=== PATIENT | female | born 1995 | race Caucasian/White ===

== ENCOUNTER 2017-02-16 03:54 | Emergency (ER) | payer SELFPAY ==
[2017-02-16 04:02] VITALS: BP 117/66
[2017-02-16] MEDS ORDERED: Ketorolac 60 MG/2 ML SDV IM ONE (04:24)
--- NOTE | 2017-02-16 12:30 | ER ---
REASON FOR VISIT: Dental pain. HISTORY OF PRESENT ILLNESS: A 21-year-old, white female, presents ambulatory to the emergency room with several week, approximately one-month history of dental pain involving all 4 wisdom teeth. The patient having pain going into the jaw and mandible on both sides. She was having fever and chills. She has tried OTC Aleve and/or ibuprofen without success. MEDICATIONS: Otherwise, none. ALLERGIES: No known. OBJECTIVE: GENERAL: She is alert. VITAL SIGNS: She is afebrile, pulse is 84, blood pressure 117/66, respirations 20, O2 saturation 100% On room air. HEENT: TMs are negative. Throat is clear. Mandible is nontender. She does have pain with opening and closing the mandible at the TMJ joint. NECK: Supple. No adenopathy. DENTAL: All 4 wisdom teeth showing signs of eruption. There is no significant swelling, redness, or signs of abscess or infection. ASSESSMENT: Dental pain, presumed secondary to wisdom teeth erupting. PLAN: 1. The patient is given Toradol 60 mg IM in the emergency room. 2. Naprosyn 500 mg b.i.d., #20, as described. She is to take these regularly twice a day. 3. Make appointment to see a dentist at the earliest convenience to have the wisdom teeth extraction. Call or return if any problems or concerns. CAIO Bauer MD /[id number]
== END 2017-02-16 04:50 | disposition home or self-care (01) ==
LOC: LL.ED 03:54
DX: K08.89 Other specified disorders of teeth and supporting structures (principal)
CPT/HCPCS: 96372; 99282; J1885; 99281

== ENCOUNTER 2017-12-05 18:50 | Emergency (ER) | payer BC, MEDICAID, OTHER ==
[2017-12-05 19:05] VITALS: BP 108/61
--- NOTE | 2017-12-05 19:54 | EDM.PDOC ---
ED HPI GENERAL MEDICAL PROBLEM - General Chief Complaint: ENT Problem Stated Complaint: tooth ache Time Seen by Provider: 12/05/17 19:00 Source of Information: Reports: Patient History Limitations: Reports: No Limitations - History of Present Illness INITIAL COMMENTS - FREE TEXT/NARRATIVE: Patient is a 22-year-old who was seen with chief complaint of left lower third molar pain appears impacted and tender there swelling on the outside outer aspect of the left cheek. Onset: Gradual Duration: Day(s):, Getting Worse, Other (Pain 8 out of 10) Location: Reports: Face Quality: Reports: Sharp Severity: Moderate Improves with: Reports: None Worsens with: Reports: None Context: Reports: Activity Associated Symptoms: Reports: No Other Symptoms left lower jaw dental Pain Score (Numeric/FACES): 8 - Related Data Allergies Allergy/AdvReac Type Severity Reaction Status Date / Time No Known Allergies Allergy Verified 12/05/17 18:59 Home Meds: Home Meds Albuterol [Proair HFA] 2 puff INH ASDIRECTED PRN 07/15/17 [History] Montelukast Sodium [Singulair] 10 mg PO DAILY 11/08/17 [History] Ibuprofen [Advil] 600 mg PO Q6H PRN 12/05/17 [History] Past Medical History Respiratory History: Reports: Asthma [employer] History: Reports: Other (See Below) Other OB/BYN History: abnormal periods. Musculoskeletal History: Reports: Fracture Psychiatric History: Reports: None - Past Surgical History Head Surgeries/Procedures: Reports: None Respiratory Surgical History: Reports: None Musculoskeletal Surgical History: Reports: None Dermatological Surgical History: Reports: None Social & Family History - Family History Family Medical History: Noncontributory - Tobacco Use Smoking Status *Q: Current Every Day Smoker Years of Tobacco use: 10 Packs/Tins Daily: 0.5 Second Hand Smoke Exposure: No - Caffeine Use Caffeine Use: Reports: Coffee, Energy Drinks, Soda, Tea - Recreational Drug Use Recreational Drug Use: Yes Drug Use in Last 12 Months: No Recreational Drug Type: Reports: Marijuana/Hashish Recreational Drug Use Frequency: Not Used In Over 1 Year ED ROS GENERAL - Review of Systems Review Of Systems: See Below Constitutional: Reports: No Symptoms HEENT: Reports: Dental Pain Respiratory: Reports: No Symptoms Cardiovascular: Reports: No Symptoms Endocrine: Reports: No Symptoms GI/Abdominal: Reports: No Symptoms : Reports: No Symptoms Musculoskeletal: Reports: No Symptoms Skin: Reports: No Symptoms Neurological: Reports: No Symptoms Psychiatric: Reports: No Symptoms Hematologic/Lymphatic: Reports: No Symptoms Immunologic: Reports: No Symptoms ED EXAM, GENERAL - Physical Exam Exam: See Below Exam Limited By: No Limitations General Appearance: Alert, WD/WN, No Apparent Distress Ears: Normal External Exam, Normal Canal, Hearing Grossly Normal, Normal TMs Nose: Normal Inspection, Normal Mucosa, No Blood Throat/Mouth: Other (Left lower jaw third molar pain) Head: Atraumatic, Normocephalic Neck: Normal Inspection, Supple, Non-Tender, Full Range of Motion Respiratory/Chest: No Respiratory Distress, Lungs Clear, Normal Breath Sounds, No Accessory Muscle Use, Chest Non-Tender Cardiovascular: Normal Peripheral Pulses, Regular Rate, Rhythm, No Edema, No Gallop, No JVD, No Murmur, No Rub GI/Abdominal: Normal Bowel Sounds, Soft, Non-Tender, No Organomegaly, No Distention, No Abnormal Bruit, No Mass (Female) Exam: Normal External Exam, Normal Speculum Exam, Normal Bimanual Exam Rectal (Female) Exam: Deferred Back Exam: Normal Inspection, Full Range of Motion, NT Extremities: Normal Inspection, Normal Range of Motion, Non-Tender, Normal Capillary Refill, No Pedal Edema Neurological: Alert, Oriented, CN II-XII Intact, Normal Cognition, Normal Gait, Normal Reflexes, No Motor/Sensory Deficits Psychiatric: Normal Affect, Normal Mood Skin Exam: Warm, Dry, Intact, Normal Color, No Rash Lymphatic: No Adenopathy Course - Vital Signs Last Recorded V/S: Last Vital Signs Temp 98.9 F 12/05/17 19:00 Pulse 87 12/05/17 19:00 Resp 16 12/05/17 19:00 BP 108/61 12/05/17 19:00 Pulse Ox 100 12/05/17 19:00 Departure - Departure Time of Disposition: 20:25 Disposition: Home, Self-Care 01 Condition: Fair Clinical Impression: Tooth pain - Discharge Information Instructions: Amoxicillin capsules or tablets, Tramadol tablets, Dental Abscess Referrals: PCP,Unknown [Primary Care Provider] - Forms: ED Department Discharge Care Plan Goals: ED HPI GENERAL MEDICAL PROBLEM - General Chief Complaint: ENT Problem Stated Complaint: tooth ache Source of Information: Reports: Patient History Limitations: Reports: No Limitations - History of Present Illness INITIAL COMMENTS - FREE TEXT/NARRATIVE: Patient is a 22-year-old who was seen with chief complaint of left lower third molar pain appears impacted and tender there swelling on the outside outer aspect of the left cheek. Onset: Gradual Duration: Day(s):, Getting Worse, Other (Pain 8 out of 10) Location: Reports: Face Quality: Reports: Sharp Severity: Moderate Improves with: Reports: None Worsens with: Reports: None Context: Reports: Activity Associated Symptoms: Reports: No Other Symptoms left lower jaw dental Pain Score (Numeric/FACES): 8 - Related Data Allergies Allergy/AdvReac Type Severity Reaction Status Date / Time No Known Allergies Allergy Verified 12/05/17 18:59 Home Meds: Home Meds Albuterol [Proair HFA] 2 puff INH ASDIRECTED PRN 07/15/17 [History] Montelukast Sodium [Singulair] 10 mg PO DAILY 11/08/17 [History] Ibuprofen [Advil] 600 mg PO Q6H PRN 12/05/17 [History] Past Medical History Respiratory History: Reports: Asthma [employer] History: Reports: Other (See Below) Other OB/BYN History: abnormal periods. Musculoskeletal History: Reports: Fracture Psychiatric History: Reports: None - Past Surgical History Head Surgeries/Procedures: Reports: None Respiratory Surgical History: Reports: None Musculoskeletal Surgical History: Reports: None Dermatological Surgical History: Reports: None Social & Family History - Family History Family Medical History: Noncontributory - Tobacco Use Smoking Status *Q: Current Every Day Smoker Years of Tobacco use: 10 Packs/Tins Daily: 0.5 Second Hand Smoke Exposure: No - Caffeine Use Caffeine Use: Reports: Coffee, Energy Drinks, Soda, Tea - Recreational Drug Use Recreational Drug Use: Yes Drug Use in Last 12 Months: No Recreational Drug Type: Reports: Marijuana/Hashish Recreational Drug Use Frequency: Not Used In Over 1 Year ED ROS GENERAL - Review of Systems Review Of Systems: See Below Constitutional: Reports: No Symptoms HEENT: Reports: Dental Pain Respiratory: Reports: No Symptoms Cardiovascular: Reports: No Symptoms Endocrine: Reports: No Symptoms GI/Abdominal: Reports: No Symptoms : Reports: No Symptoms Musculoskeletal: Reports: No Symptoms Skin: Reports: No Symptoms Neurological: Reports: No Symptoms Psychiatric: Reports: No Symptoms Hematologic/Lymphatic: Reports: No Symptoms Immunologic: Reports: No Symptoms ED EXAM, GENERAL - Physical Exam Exam: See Below Exam Limited By: No Limitations General Appearance: Alert, WD/WN, No Apparent Distress Ears: Normal External Exam, Normal Canal, Hearing Grossly Normal, Normal TMs Nose: Normal Inspection, Normal Mucosa, No Blood Throat/Mouth: Other (Left lower jaw third molar pain) Head: Atraumatic, Normocephalic Neck: Normal Inspection, Supple, Non-Tender, Full Range of Motion Respiratory/Chest: No Respiratory Distress, Lungs Clear, Normal Breath Sounds, No Accessory Muscle Use, Chest Non-Tender Cardiovascular: Normal Peripheral Pulses, Regular Rate, Rhythm, No Edema, No Gallop, No JVD, No Murmur, No Rub GI/Abdominal: Normal Bowel Sounds, Soft, Non-Tender, No Organomegaly, No Distention, No Abnormal Bruit, No Mass (Female) Exam: Normal External Exam, Normal Speculum Exam, Normal Bimanual Exam Rectal (Female) Exam: Deferred Back Exam: Normal Inspection, Full Range of Motion, NT Extremities: Normal Inspection, Normal Range of Motion, Non-Tender, Normal Capillary Refill, No Pedal Edema Neurological: Alert, Oriented, CN II-XII Intact, Normal Cognition, Normal Gait, Normal Reflexes, No Motor/Sensory Deficits Psychiatric: Normal Affect, Normal Mood Skin Exam: Warm, Dry, Intact, Normal Color, No Rash Lymphatic: No Adenopathy Course - Vital Signs Last Recorded V/S: Last Vital Signs Temp 98.9 F 12/05/17 19:00 Pulse 87 12/05/17 19:00 Resp 16 12/05/17 19:00 BP 108/61 12/05/17 19:00 Pulse Ox 100 12/05/17 19:00 Departure - Departure Time of Disposition: 19:53 Disposition: Home, Self-Care 01 Condition: Fair Clinical Impression: Tooth pain - Discharge Information Referrals: PCP,Unknown [Primary Care Provider] - Patient will see a dentist tomorrow start her on Augmentin 875 twice a day for 10 days also tramadol 50 one tablet or 4 hours when necessary
== END 2017-12-05 20:10 | disposition home or self-care (01) ==
LOC: LL.ED 18:50
DX: K08.89 Other specified disorders of teeth and supporting structures (principal); J45.909 Unspecified asthma, uncomplicated; F17.210 Nicotine dependence, cigarettes, uncomplicated; Z79.899 Other long term (current) drug therapy
CPT/HCPCS: 99282

== ENCOUNTER 2018-03-25 07:11 | Emergency (ER) | payer BC, MEDICAID ==
[2018-03-25 07:24] VITALS: BP 125/72
--- NOTE | 2018-03-25 07:37 | EDM.PDOC ---
ED HPI GENERAL MEDICAL PROBLEM - General Chief Complaint: Upper Extremity Injury/Pain Stated Complaint: left arm injury Time Seen by Provider: 03/25/18 07:25 Source of Information: Reports: Patient, Old Records, Other History Limitations: Reports: No Limitations - History of Present Illness INITIAL COMMENTS - FREE TEXT/NARRATIVE: The patient was brought to the emergency room via private automobile by her boyfriend for evaluation of lacerations of her left forearm. Initially the patient told the nurse that these occurred when a picture fell off the wall at about 4 AM this morning. She does admit to being intoxicated at the time. After further questioning by me the patient did finally admit that she intentionally cut her forearm with a knife with no known history of foreign body, other injuries, paresthesias, neurological deficits, etc. She is having increased stressors secondary to her work and also recent in the family, etc., although she is not willing to extensively discuss her stressors at this time. Last gesture reaction/self cutting about one month ago by her history. She denies any current suicidal ideation, intention of hurting others, etc.. No recent history of abdominal pain, heartburn, nausea, diarrhea, melena, gross hematochezia, or any food intolerance, including fatty foods, etc.. The patient also denies any recent fever, cough, wheezing, dyspnea, etc.. She does not know when she last received her tetanus shot. Patient is right-handed. Onset: Today, Unknown/Unsure Onset Date: 03/25/18 Onset Time: 04:00 Duration: Constant Location: Reports: Upper Extremity, Left. 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 Denies: Dysfunctional Uterine Bleeding, Endometriosis, Fibroids : 1 LMP (Approximate): 3 Weeks Other OB/BYN History: SAB during first trimester not requiring procedure. Previous history of abnormal irregular periods but not currently Musculoskeletal History: Reports: Fracture, Other (See Below). Denies: Arthritis, Osteoarthritis Other Musculoskeletal History: History of multiple injuries secondary to suicide attempt at age 14 as below including head concussion, multiple rib fracturesside unknown, right ankle fracture and to finger fractures of her right hand with no surgery required Neurological History: Reports: Concussion, Head Trauma, Other (See Below) Other Neuro History: Head concussion at age 14 as above/below Psychiatric History: Reports: Addiction, Anxiety, Depression, Psych Hospitalization(s), Suicide Attempt, Suicidal Ideation, Other (See Below) Other Psychiatric History: Anxiety depression disorder since age 14 with suicide attempt at that time with the patient jumping off a balcony with multiple injuries as above. She also has recurrent gesture reactions, including cutting her arms, etc. Note previous psychiatric hospitalization at age 14. Illicit drug, alcohol, tobacco use as below - Past Surgical History HEENT Surgical History: Reports: Oral Surgery, Other (See Below) Other HEENT Surgeries/Procedures: [place] teeth extraction 2 in December 2017 with multiple previous teeth extractions Respiratory Surgical History: Reports: None. Denies: Thoracentesis Musculoskeletal Surgical History: Reports: None Social & Family History - Tobacco Use Smoking Status *Q: Current Every Day Smoker Tobacco Use Within Last Twelve Months: Cigarettes Years of Tobacco use: 12 Packs/Tins Daily: 1 Packs/Tins Daily Comment: Started smoking at age 11 with average use of 12 packs per day Used Tobacco, but Quit: No Smoking Cessation Information Provided To Patient: Yes Second Hand Smoke Exposure: Yes Source of Second Hand Smoke Exposure: Entire family smokes Second Hand Smoke Education Provided: Yes - Caffeine Use Caffeine Use: Reports: Coffee, Energy Drinks, Soda, Tea - Alcohol Use Alcohol Use History: Yes Days Per Week of Alcohol Use: 0 (No previous DWIs, problems with alcohol abuse, etc.) Number of Drinks Per Day: 7 Number of Drinks Per Day Comment: Usually drinks about once per month with average use of 5 beers and 2 shots at each occasion Total Drinks Per Week: 0 - Recreational Drug Use Recreational Drug Use: Yes Drug Use in Last 12 Months: Yes Recreational Drug Type: Reports: Marijuana/Hashish (Started marijuana use at age 11 with monthly use including one month ago). Denies: Amphetamines (Speed) , Cocaine, Inhalants (Glues, Solvents, Aerosols), LSD (Acid), Methamphetamine, Morphine, Oxycodone Recreational Drug Use Frequency: Monthly Years of Recreational Drug Use: 12 Recreational Drug Route: Reports: Inhaled - Living Situation & Occupation Living situation: Reports: Single, with Family (2 siblings and mother) Occupation: Employed ([employer]) Review of Systems - Review of Systems Review Of Systems: ROS reveals no pertinent complaints other than HPI. ED EXAM, GENERAL - Physical Exam Exam: See Below Exam Limited By: No Limitations General Appearance: Alert, WD/WN, No Apparent Distress Eye Exam: Bilateral Eye: EOMI, Normal Inspection, PERRL Ears: Normal External Exam, Normal Canal, Hearing Grossly Normal, Normal TMs Nose: Normal Inspection, Normal Mucosa, No Blood Throat/Mouth: Normal Lips, Normal Gums, Normal Voice, No Airway Compromise. No : Normal Teeth (Multiple missing teeth and additional caries and broken teeth into the gumline particularly in lower dentition with no evidence of abscess), Dysphagia, Inflammation, Perioral Cyanosis Head: Atraumatic, Normocephalic. No: Facial Swelling, Facial Tenderness, Sinus Tenderness Neck: Normal Inspection, Supple, Non-Tender, Full Range of Motion. No: Carotid Bruit, Lymphadenopathy (L), Lymphadenopathy (R), Thyromegaly Respiratory/Chest: No Respiratory Distress, Lungs Clear, Normal Breath Sounds, No Accessory Muscle Use, Chest Non-Tender. No: Pleural Rub Cardiovascular: Normal Peripheral Pulses, Regular Rate, Rhythm, No Edema, No Gallop, No JVD, No Murmur, No Rub. No: Gallop/S3, Gallop/S4, Friction Rub Peripheral Pulses: 2+: Radial (L), Radial (R) GI/Abdominal: Normal Bowel Sounds, Soft, Non-Tender, No Organomegaly, No Distention, No Abnormal Bruit, No Mass. No: Guarding (Female) Exam: Deferred Rectal (Female) Exam: Deferred Back Exam: Normal Inspection, Full Range of Motion. No: CVA Tenderness (L), CVA Tenderness (R), Muscle Spasm Extremities: Normal Range of Motion, No Pedal Edema, Normal Capillary Refill, Arm Pain (Mild palpation pain at laceration sites), Other (All lacerations over the mid to proximal aspect of the flexor surface of her left forearm. Most proximal lesion is 8 cm in length somewhat deep in nature. Small 1.5 cm laceration just inferior to this area with most distal laceration 4.5 cm in length with both distal lacerations fairly superficial with extended superficial scratches not requiring repair. Multiple scars of the left forearm indicating previous gesture reactions.). No: Joint Swelling, Increased Warmth Psychiatric: Anxious (Mild to moderate), Depressed Mood (Moderate with adequate eye contact and no suicidal ideation, etc. as above), Other (Borderline intoxication with odor of alcohol) Skin Exam: Stud(s) (Multiple including right lower lip, left eyebrow and auricular regions by the bilaterally), Tattoo(s) (Multiple including over laceration sites), Wound/Incision (As above). No: Diaphoretic Lymphatic: No Adenopathy ED TRAUMA EXTREMITY PROCEDURES - Laceration/Wound Repair Right Upper Dorsal Arm Lac/Wound Length In cm: 8.0 Appearance: Superficial, Clean Distal NVT: Neuro & Vascular Intact, No Tendon Injury Anesthetic Type: Local Local Anesthesia - Lidocaine (Xylocaine): 1% Plain Local Anesthetic Volume: Other (8) Skin Prep: Providone-Iodine (Betadine) Saline Irrigation (cc's): 0 Exploration/Debridement/Repair: Wound Explored, In a Bloodless Field, Explored to Base, No Foreign Material Found, Other Closed With: Sutures Suture Size: 4-0 # of Sutures: 11 Suture Type: Nylon, Interrupted, Simple Drain Placement: No Sterile Dressing Applied: Nurse Tetanus Status Addressed: Yes Complications: No Left Middle Dorsal Arm Lac/Wound Length In cm: 1.5 Appearance: Superficial Distal NVT: Neuro & Vascular Intact, No Tendon Injury Anesthetic Type: Local Local Anesthesia - Lidocaine (Xylocaine): 1% Plain Local Anesthetic Volume: 2cc Skin Prep: Providone-Iodine (Betadine) Saline Irrigation (cc's): 0 Exploration/Debridement/Repair: Wound Explored, In a Bloodless Field, Explored to Base, No Foreign Material Found, Wound Margins Revised Closed With: Sutures Suture Size: 4-0 # of Sutures: 3 Suture Type: Nylon, Interrupted, Simple Drain Placement: No Sterile Dressing Applied: Nurse Tetanus Status Addressed: Yes Complications: No Left Lower Dorsal Arm Lac/Wound Length In cm: 4.5 Distal NVT: Neuro & Vascular Intact, No Tendon Injury Anesthetic Type: Local Local Anesthesia - Lidocaine (Xylocaine): 1% Plain Local Anesthetic Volume: 5cc Skin Prep: Providone-Iodine (Betadine) Saline Irrigation (cc's): 0 Exploration/Debridement/Repair: Wound Explored, In a Bloodless Field, Explored to Base, No Foreign Material Found Closed With: Sutures Suture Size: 4-0 # of Sutures: 4 Suture Type: Nylon, Interrupted, Simple Drain Placement: No Sterile Dressing Applied: Nurse Tetanus Status Addressed: Yes Complications: No Course - Vital Signs Last Recorded V/S: Last Vital Signs Temp 37.3 C 03/25/18 07:22 Pulse 100 03/25/18 07:22 Resp 18 03/25/18 07:22 BP 125/72 03/25/18 07:22 Pulse Ox 100 03/25/18 07:22 Vital Signs - 24 hr 03/25/18 07:22 Temperature [ 37.3 C Oral] Pulse, 100 Peripheral [ Left Pulse Oximetry] Respiratory 18 Rate Blood Pressure 125/72 [Right Upper Arm] O2 Sat by Pulse 100 Oximetry - Orders/Labs/Meds Orders: Active Orders 24 hr Category Date Time Status Vaccines to be Administered [RC] PER UNIT ROUTINE Care 03/25/18 07:38 Active Obtain Past Medical Record [OM.PC] Routine Oth 03/25/18 07:37 Active Labs: None Meds: Medications Discontinued Medications Generic Name Dose Route Start Last Admin Trade Name Freq PRN Reason Stop Dose Admin Diphtheria/Tetanus/Acell Pertussis 0.5 ml 03/25/18 07:38 03/25/18 07:49 Adacel IM 03/25/18 07:39 0.5 ml .ONCE ONE Administration Lidocaine HCl 5 ml 03/25/18 07:38 03/25/18 07:49 Xylocaine-Mpf 1% INJECT 03/25/18 07:39 5 ml ONETIME ONE Administration Lidocaine HCl 5 ml 03/25/18 07:39 03/25/18 07:49 Xylocaine-Mpf 1% INJECT 03/25/18 07:40 5 ml ONETIME ONE Administration Lidocaine HCl 5 ml 03/25/18 07:39 03/25/18 07:54 Xylocaine-Mpf 1% INJECT 03/25/18 07:40 5 ml ONETIME ONE Administration Lidocaine HCl 5 ml 03/25/18 07:39 03/25/18 08:13 Xylocaine-Mpf 1% INJECT 03/25/18 07:40 Not Given ONETIME ONE Lidocaine HCl 5 ml 03/25/18 07:39 03/25/18 08:13 Xylocaine-Mpf 1% INJECT 03/25/18 07:40 Not Given ONETIME ONE Neomycin/Polymyxin/Bacitracin 1 each 03/25/18 07:38 03/25/18 07:49 Triple Antibiotic Oint TOP 03/25/18 07:39 1 each ONETIME ONE Administration - Radiology Interpretation Free Text/Narrative:: None Departure - Departure Time of Disposition: 08:37 Disposition: Home, Self-Care 01 Condition: Good Clinical Impression: Laceration, Mixed anxiety depressive disorder, Tobacco abuse counseling, Illicit drug use, Caries Asthma Qualifiers: Asthma severity: mild Asthma persistence: intermittent Asthma complication type : uncomplicated Qualified Code(s): J45.20 - Mild intermittent asthma, uncomplicated - Discharge Information Instructions: Laceration Care, Adult, [id number], Stitches, Ricarod, or Adhesive Wound Closure, [id number] Referrals: PCP,None [Primary Care Provider] - Forms: ED Department Discharge Additional Instructions: 1. Follow-up with your regular provider tomorrow for reevaluation and work release. Discuss at that time recommended reinitiation of medical therapy and possible additional counseling for your anxiety and depression 2. Avoid alcohol use and discontinue all marijuana use as discussed 3. Stop all tobacco use JUAN as directed/per provided information and consider contacting Quit LIne, etc.. 4. Antibacterial soap wash/soak with subsequent antibacterial dressing such as Neosporin, etc. as directed 2 times per day until the wound or laceration site completely heals. Keep the area clean and dry with activity restrictions as discussed. 5. Tylenol 650 mg by mouth every 4 hours and/or OTC ibuprofen 2-3 tabs by mouth every 6 hours with food as directed./needed. 6. Follow with your dentist JUAN as discussed 7. 10 pound lifting restriction with your left arm until otherwise released by your regular provider - Problem List & Annotations (1) Laceration SNOMED Code(s): 506173183 Code(s): DOY9057 - Status: Acute Priority: High Onset Date: 03/25/18 Annotation/Comment:: Excellent results with laceration repair as above. DTaP given. Activity and wound care instructions were given. [employer] work excuse form was completed, however the patient was not released back to work this evening secondary to her emotional status and dangerous work environment. She will follow-up with her regular provider, Jaimie Mays PA-C, at [facility] in [place], tomorrow for reevaluation and probable work excuse at that time (2) Mixed anxiety depressive disorder SNOMED Code(s): 811115314 Code(s): F41.8 - OTHER SPECIFIED ANXIETY DISORDERS Status: Chronic Priority: High Annotation/Comment:: Significant exacerbation of her anxiety and depression disorder with patient stopping her previous medications on her own about 10 years ago. Note previous gesture reaction only one month ago. Emotional support was provided. The importance of medication compliance, possible counseling, etc. were extensively discussed. Close follow-up by her regular provider as per discharge instructions, including evaluation tomorrow as above (3) Illicit drug use SNOMED Code(s): 476623880 Code(s): F19.90 - OTHER PSYCHOACTIVE SUBSTANCE USE, UNSPECIFIED, UNCOMPLICATED Status: Chronic Priority: Medium Annotation/Comment:: Discontinue all marijuana and alcohol use JUAN since this aggravates her current anxiety and depression (4) Asthma SNOMED Code(s): 936896512 Code(s): J45.909 - UNSPECIFIED ASTHMA, UNCOMPLICATED Status: Chronic Priority: Medium Annotation/Comment:: Stable under current medical therapy by patient history with no recent fever or bronchitic type symptoms. Discontinue all tobacco use and exposure JUAN as below. Qualifiers: Asthma severity: mild Asthma persistence: intermittent Asthma complication type: uncomplicated Qualified Code(s): J45.20 - Mild intermittent asthma, uncomplicated (5) Caries SNOMED Code(s): 37681617 Code(s): K02.9 - DENTAL CARIES, UNSPECIFIED Status: Chronic Priority: Medium Annotation/Comment:: Patient was advised to follow-up with dentist JUAN (6) Tobacco abuse counseling SNOMED Code(s): 799535022, 142514390, 189494560 Code(s): Z71.6 - TOBACCO ABUSE COUNSELING Status: Chronic Priority: Medium Annotation/Comment:: Stop all tobacco use JUAN as directed/per provided information and consider contacting Quit LIne, etc.. - Problem List Review Problem List Initiated/Reviewed/Updated: Yes - My Orders Last 24 Hours: My Active Orders 03/25/18 07:37 Obtain Past Medical Record [OM.PC] Routine 03/25/18 07:38 Vaccines to be Administered [RC] PER UNIT ROUTINE - Assessment/Plan Last 24 Hours: My Active Orders 03/25/18 07:37 Obtain Past Medical Record [OM.PC] Routine 03/25/18 07:38 Vaccines to be Administered [RC] PER UNIT ROUTINE Assessment:: As above Plan: As above. Extensive precautions were given to the patient and her boyfriend, who are in agreement with the treatment plan. See Patient Instructions for further treatment and plan.
[2018-03-25] MEDS: Diphtheria,Pertussis(Acell),Tetanus Vaccine 0.5 ML SDV IM ONE (07:49)
[2018-03-25] MEDS: Bacitracin/Neomycin/Polymyxin B Oint 0.9 GM U/D Packet TOP ONE (07:49)
== END 2018-03-25 08:37 | disposition home or self-care (01) ==
LOC: LL.ED 07:11
DX: S51.812A Laceration without foreign body of left forearm, initial encounter (principal); J45.20 Mild intermittent asthma, uncomplicated; F41.8 Other specified anxiety disorders; F19.90 Other psychoactive substance use, unspecified, uncomplicated; K02.9 Dental caries, unspecified; Z23 Encounter for immunization; Z71.6 Tobacco abuse counseling; F17.210 Nicotine dependence, cigarettes, uncomplicated; Z79.899 Other long term (current) drug therapy; W20.8XXA Other cause of strike by thrown, projected or falling object, initial encounter
CPT/HCPCS: 12005; 90471; 90715; 99283

== ENCOUNTER 2019-01-17 07:44 | Emergency (ER) | payer BC, OTHER ==
[2019-01-17 07:51] VITALS: BP 117/65
--- NOTE | 2019-01-17 08:44 | EDM.PDOC ---
ED HPI GENERAL MEDICAL PROBLEM - General Chief Complaint: General Stated Complaint: L hand laceration Time Seen by Provider: 01/17/19 08:00 Source of Information: Reports: Patient History Limitations: Reports: No Limitations - History of Present Illness INITIAL COMMENTS - FREE TEXT/NARRATIVE: Patient is a 23-year-old who works at [employer] states that towards the end of her shift she was sweeping her work area where there was a piece of metal that cut her- a superficial laceration full-thickness in the dorsal aspect of the left hand this was approximately an inch long Onset: Today Duration: Minutes:, Constant Location: Reports: Upper Extremity, Left Quality: Reports: Ache Severity: Mild Improves with: Reports: None Worsens with: Reports: None Context: Reports: Trauma Left Anterior Hand Pain Score (Numeric/FACES): 2 - Related Data Allergies Allergy/AdvReac Type Severity Reaction Status Date / Time No Known Allergies Allergy Verified 01/17/19 07:52 Home Meds: Home Meds Albuterol [Proair HFA] 2 puff INH ASDIRECTED PRN 07/15/17 [History] Past Medical History HEENT History: Reports: Impaired Vision, Other (See Below). 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 Denies: Dysfunctional Uterine Bleeding, Endometriosis, Fibroids Other SCAFFOLD WORKER History: SAB during first trimester not requiring procedure. Previous history of abnormal irregular periods but not currently Musculoskeletal History: Reports: Fracture, Other (See Below). Denies: Arthritis, Osteoarthritis Other Musculoskeletal History: History of multiple injuries secondary to suicide attempt at age 14 as below including head concussion, multiple rib fracturesside unknown, right ankle fracture and to finger fractures of her right hand with no surgery required Neurological History: Reports: Concussion, Head Trauma, Other (See Below) Other Neuro History: Head concussion at age 14 as above/below Psychiatric History: Reports: Addiction, Anxiety, Depression, Psych Hospitalization(s), Suicide Attempt, Suicidal Ideation, Other (See Below) Other Psychiatric History: Anxiety depression disorder since age 14 with suicide attempt at that time with the patient jumping off a balcony with multiple injuries as above. She also has recurrent gesture reactions, including cutting her arms, etc. Note previous psychiatric hospitalization at age 14. Illicit drug, alcohol, tobacco use as below - Past Surgical History HEENT Surgical History: Reports: Oral Surgery, Other (See Below) Other HEENT Surgeries/Procedures: [place] teeth extraction 2 in December 2017 with multiple previous teeth extractions Respiratory Surgical History: Reports: None. Denies: Thoracentesis Musculoskeletal Surgical History: Reports: None Social & Family History - Family History Family Medical History: Noncontributory - Tobacco Use Smoking Status *Q: Current Every Day Smoker Years of Tobacco use: 13 Packs/Tins Daily: 0.5 - Caffeine Use Caffeine Use: Reports: Energy Drinks - Recreational Drug Use Recreational Drug Use: Yes Drug Use in Last 12 Months: Yes Recreational Drug Type: Reports: Marijuana/Hashish - Living Situation & Occupation Living situation: Reports: Single, with Family (2 siblings and mother) Occupation: Employed ([employer]) ED ROS GENERAL - Review of Systems Review Of Systems: ROS reveals no pertinent complaints other than HPI. ED EXAM, GENERAL - Physical Exam Exam: See Below Exam Limited By: No Limitations General Appearance: Alert, WD/WN, No Apparent Distress Ears: Normal External Exam, Normal Canal, Hearing Grossly Normal, Normal TMs Nose: Normal Inspection, Normal Mucosa, No Blood Throat/Mouth: Normal Inspection, Normal Lips, Normal Teeth, Normal Gums, Normal Oropharynx, Normal Voice, No Airway Compromise Head: Atraumatic, Normocephalic Neck: Normal Inspection, Supple, Non-Tender, Full Range of Motion Respiratory/Chest: No Respiratory Distress, Lungs Clear, Normal Breath Sounds, No Accessory Muscle Use, Chest Non-Tender Cardiovascular: Normal Peripheral Pulses, Regular Rate, Rhythm, No Edema, No Gallop, No JVD, No Murmur, No Rub GI/Abdominal: Normal Bowel Sounds, Soft, Non-Tender, No Organomegaly, No Distention, No Abnormal Bruit, No Mass Back Exam: Normal Inspection, Full Range of Motion, NT Extremities: Normal Range of Motion, Other (Laceration 1 inch dorsal aspect of the hand) Neurological: Alert, Oriented, CN II-XII Intact, Normal Cognition, Normal Gait, Normal Reflexes, No Motor/Sensory Deficits Psychiatric: Normal Affect, Normal Mood Skin Exam: Warm, Dry, Intact, Normal Color, No Rash Lymphatic: No Adenopathy ED GENERAL MEDICAL PROCEDURES - Laceration/Wound Repair Left Hand Lac/wound length in cm: 1.5 Appearance: Superficial Skin Prep: Providone-Iodine (Betadine) Exploration/Debridement/Repair: No Foreign Material Found Closed with: Dermabond Course - Vital Signs Last Recorded V/S: Last Vital Signs Temp 99 F 01/17/19 07:45 Pulse 68 01/17/19 07:45 Resp 16 01/17/19 07:45 BP 117/65 01/17/19 07:45 Pulse Ox 100 01/17/19 07:45 Departure - Departure Time of Disposition: 08:47 Disposition: Home, Self-Care 01 Clinical Impression: Laceration of hand Qualifiers: Encounter type: initial encounter Foreign body presence: without foreign body Laterality: left Qualified Code(s): S61.412A - Laceration without foreign body of left hand, initial encounter - Discharge Information *PRESCRIPTION DRUG MONITORING PROGRAM REVIEWED*: No *COPY OF PRESCRIPTION DRUG MONITORING REPORT IN PATIENT AC: No Instructions: Tissue Adhesive Wound Care Referrals: Jaimie Hdz PA-C [Primary Care Provider] - Forms: ED Department Discharge Additional Instructions: wound cleaned and dermabond applied
== END 2019-01-17 09:05 | disposition home or self-care (01) ==
LOC: LL.ED 07:44
DX: S61.412A Laceration without foreign body of left hand, initial encounter (principal); J45.909 Unspecified asthma, uncomplicated; F17.210 Nicotine dependence, cigarettes, uncomplicated; F41.9 Anxiety disorder, unspecified; F32.9 Major depressive disorder, single episode, unspecified; W26.8XXA Contact with other sharp object(s), not elsewhere classified, initial encounter
CPT/HCPCS: 12001; 99282

== ENCOUNTER 2019-06-05 17:39 | Emergency (ER) | payer BC, OTHER ==
[2019-06-05] MEDS ORDERED: Sodium Chloride 0.9% 10 ML Syringe FLUSH PRN (17:53)
--- NOTE | 2019-06-05 17:53 | EDM.PDOC ---
ED HPI GENERAL MEDICAL PROBLEM - General Chief Complaint: NETWORK RELATIONS CONSULTANT Problem Stated Complaint: abdominal/pelvic pain Time Seen by Provider: 06/05/19 17:50 Source of Information: Reports: Patient, Family (Sister), Old Records ([facility] EMR. No paper hospital chart available.), Other ( [place] EMR) History Limitations: Reports: No Limitations - History of Present Illness INITIAL COMMENTS - FREE TEXT/NARRATIVE: The patient was brought to the emergency room via private automobile by her sister for evaluation of 06/05 suprapubic cramping with 8 soaked pads per day including moderate blood clots since about midnight this past evening. No direct known history of tissue being passed at this time with patient prescribed misoprostal by her NETWORK RELATIONS CONSULTANT at [facility] in [place] on 05/27 secondary to a blighted ovum. Patient did have some moderate bleeding for about 6 days thereafter with possible tissue passage during that time period, however no follow-up ultrasound to this point. She did miss work yesterday. Patient did have an OB ultrasound on 05/21 confirming the above diagnosis with apparent fall of her hemoglobin to 11.5 on 05/27 in comparison to 05/21 per [place] records. Patient has felt somewhat dizzy since yesterday with possible fever and chills, however temperature not measured. Patient did take some ibuprofen yesterday. She may also be having some mild dysuria and UTI symptoms but no colic. No recent history of other abdominal pain, heartburn, nausea, diarrhea, melena, gross hematochezia, or any food intolerance, including fatty foods, etc. with normal bowel movement yesterday. The patient denies any chest pain/pressure, heart flutter, orthostasis, orthopnea, diaphoresis, paresthesias, recent decreased exercise tolerance, or any other anginal-type symptoms. The patient also denies any recent cough, wheezing, dyspnea, etc.. Onset: Today, Gradual Onset Date: 06/05/19 Onset Time: 00:00 Duration: Constant, Getting Worse Location: Reports: Abdomen. Denies: Head, Face, Neck, Chest, Back, Pelvis, Upper Extremity, Left, Upper Extremity, Right, Radiates to Quality: Reports: Pressure (Cramping), Same as Previous Episode Severity: Moderate Improves with: Reports: None Worsens with: Reports: None Context: Reports: Other (As above). Denies: Sick Contact, Trauma Associated Symptoms: Reports: Fever/Chills. Denies: Confusion, Chest Pain, Cough, Diaphoresis, Headaches, Loss of Appetite, Malaise, Nausea/Vomiting, Shortness of Breath, Syncope, Weakness Treatments CRIMINAL JUSTICE DEPARTMENT CHAIR: Reports: NSAIDS (As above) Upper Pelvic Pain Score (Numeric/FACES): 7 - Related Data Allergies Allergy/AdvReac Type Severity Reaction Status Date / Time No Known Allergies Allergy Verified 06/05/19 17:41 Home Meds: Home Meds Albuterol [Proair HFA] 2 puff INH ASDIRECTED PRN 07/15/17 [History] Ibuprofen 2 - 3 tab PO Q6HR PRN 06/05/19 [History] Zvy465/Iron/FA/O3/Dha/Epa/Fish [ Multi-Dha Softgel] 1 cap PO DAILY 06/05 [History] Past Medical History HEENT History: Reports: Impaired Vision, Other (See Below). Denies: Allergic Rhinitis, Hard of Hearing, Retinal Detachment Other HEENT History: History of Multiple caries. Patient wears glasses. Cardiovascular History: Reports: None. Denies: Afib, Aneurysm, Arrhythmia, Blood Clots/VTE/DVT, Heart Murmur, High Cholesterol, Hypertension, Syncope Respiratory History: Reports: Asthma, Bronchitis, Recurrent. Denies: Intubation , Previous, PE, Pneumothorax, Sleep Apnea Gastrointestinal History: Denies: Celiac Disease, Cholelithiasis, Chronic Constipation, Chronic Diarrhea, GERD, GI Bleed, Hepatitis, Hiatal Hernia, Inflammatory Bowel Disease, Irritable Bowel Syndrome, Jaundice, PUD Genitourinary History: Reports: None. Denies: Acute Renal Failure, Chronic Renal Insuffiency, Renal Calculus, STD, Urinary Incontinence, UTI, Recurrent NETWORK RELATIONS CONSULTANT History: Reports: , Spontaneous , Other (See Below). Denies: Dysfunctional Uterine Bleeding, Endometriosis, Fibroids : 2 Para: 0 LMP (Approximate): Other (See Below) Other NETWORK RELATIONS CONSULTANT History: LMP certain on 03/04/19 with current blighted ovum diagnosed by OB ultrasound on 04/2519. SAB during first trimester not requiring procedure. Previous history of abnormal irregular periods but not currently. Musculoskeletal History: Reports: Fracture, Other (See Below). Denies: Arthritis, Osteoarthritis Other Musculoskeletal History: History of multiple injuries secondary to suicide attempt at age 14 as below including head concussion, multiple rib fracturesside unknown, right ankle fracture and 2 finger fractures of her right hand with no surgery required. Neurological History: Reports: Concussion, Head Trauma, Other (See Below). Denies: Headaches, Chronic, Neuropathy, Peripheral, Seizure Other Neuro History: Head concussion at age 14 as above/below Psychiatric History: Reports: Addiction, Anxiety, Depression, Psych Hospitalization(s), Suicide Attempt, Suicidal Ideation, Other (See Below) Other Psychiatric History: Anxiety depression disorder since age 14 with suicide attempt at that time with the patient jumping off a balcony with multiple injuries as above. She also has recurrent gesture reactions, including cutting her arms, etc. Note previous psychiatric hospitalization at age 14. Illicit drug, alcohol, tobacco use as below Endocrine/Metabolic History: Denies: Diabetes, Gestational, Diabetes, Type I, Diabetes, Type II, Diabetes Mellitus, Type 3c, Hypothyroidism, IDDM Hematologic History: Reports: None. Denies: Anemia, Blood Transfusion(s), Iron Deficiency Immunologic History: Denies: AIDS, HIV, SLE Oncologic (Cancer) History: Denies: Basal Cell Carcinoma, Breast, Cervix, Hodgkin's Lymphoma, Leukemia, Lymphoma, Malignant Melanoma, Non-Hodgkin's Lymphoma, Ovarian, Squamous Cell Carcinoma Dermatologic History: Reports: None. Denies: Eczema, Psoriasis - Infectious Disease History Infectious Disease History: Reports: None. Denies: C-Difficile, Chicken Pox, Measles, Meningitis, Mononucleosis, MRSA, Mumps, Pertussis (Whooping Cough), Rheumatic Fever, RSV, Rubella, Scarlet Fever, Shingles, TB, VRE - Past Surgical History HEENT Surgical History: Reports: Oral Surgery, Other (See Below) Other HEENT Surgeries/Procedures: [place] teeth extraction 2 in December 2017 with multiple previous teeth extractions Respiratory Surgical History: Reports: None. Denies: Thoracentesis Musculoskeletal Surgical History: Reports: None - Past Imaging History Past Imaging History: Reports: Ultrasound (OB ultrasound on 05/21/19.) Social & Family History - Family History Family Medical History: Noncontributory - Tobacco Use Smoking Status *Q: Former Smoker Tobacco Use Within Last Twelve Months: Cigarettes Years of Tobacco use: 23 Packs/Tins Daily: 1 Packs/Tins Daily Comment: Started smoking at age 11 with average use of 12 packs per day with no tobacco use since March 2019 Used Tobacco, but Quit: Yes Month/Year Tobacco Last Used: As above Smoking Cessation Information Provided To Patient: No Second Hand Smoke Exposure: No Source of Second Hand Smoke Exposure: No tobacco exposure currently however previous exposure to multiple family members. Second Hand Smoke Education Provided: No - Caffeine Use Caffeine Use: Reports: Coffee (3 cups per day), Energy Drinks (1 per week). Denies: Soda, Tea - Alcohol Use Alcohol Use History: Yes Days Per Week of Alcohol Use: 0 Number of Drinks Per Day Comment: No alcohol use since March 2019. Previous use of 5 beers and 2 shots about once per month. No previous DWIs, problems with alcohol abuse, etc. Alcohol Use in Last Twelve Months: Yes Alcohol Use Frequency: Binges - Recreational Drug Use Recreational Drug Use: Yes Drug Use in Last 12 Months: Yes Recreational Drug Type: Reports: Marijuana/Hashish (Started marijuana use at age 11 with previous monthly use with last use in February 2018.). Denies: Amphetamines (Speed), Cocaine, Heroin, Inhalants (Glues, Solvents, Aerosols), LSD (Acid), Methamphetamine, Morphine, Oxycodone Recreational Drug Use Frequency: Monthly Recreational Drug Route: Reports: Inhaled - Living Situation & Occupation Living situation: Reports: Single, Alone (However current significant other relationship) Occupation: Employed ([employer]) ED ROS GENERAL - Review of Systems Review Of Systems: ROS reveals no pertinent complaints other than HPI. ED EXAM, RENAL/ - Physical Exam Exam: See Below General Appearance: Alert, WD/WN, No Apparent Distress Head: Atraumatic, Normocephalic Neck: Normal Inspection, Supple, Non-Tender, Full Range of Motion. No: Carotid Bruit, Lymphadenopathy (L), Lymphadenopathy (R), Thyromegaly Respiratory/Chest: No Respiratory Distress, Lungs Clear, Normal Breath Sounds, No Accessory Muscle Use, Chest Non-Tender. No: Pleural Rub, Retractions Cardiovascular: Normal Peripheral Pulses, Regular Rate, Rhythm, No Edema, No Gallop, No JVD, No Murmur, No Rub. No: Gallop/S3, Gallop/S4 GI/Abdominal: Normal Bowel Sounds, Soft, Non-Tender, No Organomegaly, No Distention, No Abnormal Bruit, No Mass, Pelvis Stable. No: Guarding (Female) Exam: Enlarged Uterus (Appropriate for blighted ovum), Vaginal Bleeding (Minimal with no clots), Other (No tissue). No: Adnexal Mass, Adnexal Tenderness, Cervical Dilatation, Cervical Discharge, Cervical Fluid, Cervical Lesions, Cervix Motion Tenderness, Products of Conception, Uterine Tenderness, Vaginal Discharge, Vaginal Lesions, Vaginal Tears Rectal (Female) Exam: Deferred Back Exam: Normal Inspection, Full Range of Motion. No: CVA Tenderness (L), CVA Tenderness (R), Muscle Spasm Extremities: Normal Inspection, Normal Range of Motion, Non-Tender, No Pedal Edema, Normal Capillary Refill. No: Mildred's Sign Neurological: Alert, Oriented, CN II-XII Intact, Normal Cognition, Normal Gait, Normal Reflexes (Negative Babinski's), No Motor/Sensory Deficits Psychiatric: Normal Affect, Normal Mood Skin Exam: Warm, Dry, Intact, Normal Color, No Rash, Stud(s) (Multiple), Tattoo( s) (Multiple). No: Diaphoretic, Ecchymosis, Pallor, Petechiae, Wound/Incision Lymphatic: No Adenopathy Course - Vital Signs Last Recorded V/S: Last Vital Signs Temp 36.8 C 06/05/19 17:39 Pulse 69 06/05/19 19:09 Resp 14 06/05/19 19:09 BP 98/63 06/05/19 19:09 Pulse Ox 100 06/05/19 19:09 Vital Signs - 24 hr 06/05/19 06/05/19 06/05/19 17:39 18:30 18:36 Temperature [ 36.8 C Temporal] Pulse, 74 70 76 Peripheral [ Right Pulse Oximetry] Respiratory 14 14 Rate Blood Pressure 104/55 L 112/58 L 119/61 [Left Upper Arm ] O2 Sat by Pulse 100 100 Oximetry 06/05/19 18:42 Temperature [ Temporal] Pulse, 64 Peripheral [ Right Pulse Oximetry] Respiratory 14 Rate Blood Pressure 112/52 L [Left Upper Arm ] O2 Sat by Pulse 100 Oximetry Negative orthostatic blood pressures as above. - Orders/Labs/Meds Orders: Active Orders 24 hr Category Date Time Status Cardiac Monitoring [RC] . DIRECTED Care 06/05/19 17:58 Active Peripheral IV Care [RC] . DIRECTED Care 06/05/19 17:53 Active CULTURE URINE [RM] Stat Lab 06/05/19 17:53 Received Obtain Past Medical Record [OM.PC] Urgent Oth 06/05/19 17:53 Active Peripheral IV Insertion Adult [OM.PC] Stat Oth 06/05/19 17:53 Ordered Resuscitation Status Stat Resus Stat 06/05/19 17:53 Ordered Labs: Laboratory Tests 06/05/19 06/05/19 06/05/19 Range/Units 17:53 18:13 18:13 WBC 6.4 (4.0-10.2) K/uL RBC 4.70 (3.77-5.09) M/uL Hgb 14.3 (11.7-15.5) g/dL Hct 41.3 (34.0-46.0) % MCV 87.9 (84.0-98.0) fL MCH 30.4 (28.2-33.3) pg MCHC 34.6 (31.7-36.0) g/dL RDW 12.2 (11.2-14.1) % Plt Count 201 (150-350) K/uL Neut % (Auto) 56.5 (45.0-80.0) % Lymph % (Auto) 28.7 (10.0-50.0) % [place] % (Auto) 8.7 (2.0-14.0) % Eos % (Auto) 5.5 H (0.0-5.0) % Baso % (Auto) 0.6 (0.0-2.0) % Neut # (Auto) 3.59 (1.40-7.00) K/uL Lymph # (Auto) 1.82 (0.50-3.50) K/uL [place] # (Auto) 0.55 (0.00-1.00) K/uL Eos # (Auto) 0.35 (0.00-0.50) K/uL Baso # (Auto) 0.04 (0.00-0.20) K/uL PT (9.5-12.0) SEC INR APTT (21.0-31.3) SEC Sodium (136-145) mmol/L Potassium (3.5-5.1) mmol/L Chloride (98-107) mmol/L Carbon Dioxide (21.0-32.0) mmol/L BUN (7-18) mg/dL Creatinine (0.51-1.17) mg/dL Est Cr Clr Drug Dosing Estimated GFR (MDRD) mL/min Glucose (74-106) mg/dL Lactic Acid (0.4-2.0) mmol/L Calcium (8.5-10.1) mg/dL Magnesium (1.8-2.4) mg/dL Total Bilirubin (0.2-1.0) mg/dL AST (15-37) U/L ALT (12-78) U/L Alkaline Phosphatase (46-116) IU/L Total Protein (6.4-8.2) g/dL Albumin (3.4-5.0) g/dL Amylase 64 (25-115) U/L Lipase (73-393) U/L HCG, Quant mIU/mL Specimen Type Urinvoid Urine Color Dark yellow Urine Appearance Slightly cloudy Urine pH 6.0 (5.0-9.0) Ur Specific [place] 1.025 (1.005-1.030) Urine Protein 30 H (NEGATIVE) mg/dL Urine Glucose (UA) Negative (NEGATIVE) mg/dL Urine Ketones Trace H (NEGATIVE) mg/dL Urine Occult Blood Large H (NEGATIVE) Urine Nitrite Negative (NEGATIVE) Urine Bilirubin Negative (NEGATIVE) Urine Urobilinogen 0.2 (0.2-1.0) E.U./dL Ur Leukocyte Esterase Negative (NEGATIVE) Urine RBC 30-40 H /HPF Urine WBC 5-10 H /HPF Ur Epithelial Cells Moderate H /LPF Urine Bacteria Few (NONE TO FEW) /HPF 06/05/19 06/05/19 06/05/19 Range/Units 18:13 18:13 18:13 WBC (4.0-10.2) K/uL RBC (3.77-5.09) M/uL Hgb (11.7-15.5) g/dL Hct (34.0-46.0) % MCV (84.0-98.0) fL MCH (28.2-33.3) pg MCHC (31.7-36.0) g/dL RDW (11.2-14.1) % Plt Count (150-350) K/uL Neut % (Auto) (45.0-80.0) % Lymph % (Auto) (10.0-50.0) % [place] % (Auto) (2.0-14.0) % Eos % (Auto) (0.0-5.0) % Baso % (Auto) (0.0-2.0) % Neut # (Auto) (1.40-7.00) K/uL Lymph # (Auto) (0.50-3.50) K/uL [place] # (Auto) (0.00-1.00) K/uL Eos # (Auto) (0.00-0.50) K/uL Baso # (Auto) (0.00-0.20) K/uL PT 10.0 (9.5-12.0) SEC INR 0.9 APTT 29.5 (21.0-31.3) SEC Sodium 142 (136-145) mmol/L Potassium 3.9 (3.5-5.1) mmol/L Chloride 104 (98-107) mmol/L Carbon Dioxide 25.8 (21.0-32.0) mmol/L BUN 14 (7-18) mg/dL Creatinine 0.74 (0.51-1.17) mg/dL Est Cr Clr Drug Dosing TNP Estimated GFR (MDRD) > 60 mL/min Glucose 86 (74-106) mg/dL Lactic Acid 0.6 (0.4-2.0) mmol/L Calcium 9.0 (8.5-10.1) mg/dL Magnesium 2.1 (1.8-2.4) mg/dL Total Bilirubin 0.2 (0.2-1.0) mg/dL AST 27 (15-37) U/L ALT 27 (12-78) U/L Alkaline Phosphatase 59 (46-116) IU/L Total Protein 7.4 (6.4-8.2) g/dL Albumin 4.0 (3.4-5.0) g/dL Amylase (25-115) U/L Lipase 146 (73-393) U/L HCG, Quant mIU/mL Specimen Type Urine Color Urine Appearance Urine pH (5.0-9.0) Ur Specific [place] (1.005-1.030) Urine Protein (NEGATIVE) mg/dL Urine Glucose (UA) (NEGATIVE) mg/dL Urine Ketones (NEGATIVE) mg/dL Urine Occult Blood (NEGATIVE) Urine Nitrite (NEGATIVE) Urine Bilirubin (NEGATIVE) Urine Urobilinogen (0.2-1.0) E.U./dL Ur Leukocyte Esterase (NEGATIVE) Urine RBC /HPF Urine WBC /HPF Ur Epithelial Cells /LPF Urine Bacteria (NONE TO FEW) /HPF 06/05/19 Range/Units 18:13 WBC (4.0-10.2) K/uL RBC (3.77-5.09) M/uL Hgb (11.7-15.5) g/dL Hct (34.0-46.0) % MCV (84.0-98.0) fL MCH (28.2-33.3) pg MCHC (31.7-36.0) g/dL RDW (11.2-14.1) % Plt Count (150-350) K/uL Neut % (Auto) (45.0-80.0) % Lymph % (Auto) (10.0-50.0) % [place] % (Auto) (2.0-14.0) % Eos % (Auto) (0.0-5.0) % Baso % (Auto) (0.0-2.0) % Neut # (Auto) (1.40-7.00) K/uL Lymph # (Auto) (0.50-3.50) K/uL [place] # (Auto) (0.00-1.00) K/uL Eos # (Auto) (0.00-0.50) K/uL Baso # (Auto) (0.00-0.20) K/uL PT (9.5-12.0) SEC INR APTT (21.0-31.3) SEC Sodium (136-145) mmol/L Potassium (3.5-5.1) mmol/L Chloride (98-107) mmol/L Carbon Dioxide (21.0-32.0) mmol/L BUN (7-18) mg/dL Creatinine (0.51-1.17) mg/dL Est Cr Clr Drug Dosing Estimated GFR (MDRD) mL/min Glucose (74-106) mg/dL Lactic Acid (0.4-2.0) mmol/L Calcium (8.5-10.1) mg/dL Magnesium (1.8-2.4) mg/dL Total Bilirubin (0.2-1.0) mg/dL AST (15-37) U/L ALT (12-78) U/L Alkaline Phosphatase (46-116) IU/L Total Protein (6.4-8.2) g/dL Albumin (3.4-5.0) g/dL Amylase (25-115) U/L Lipase (73-393) U/L HCG, Quant 44 mIU/mL Specimen Type Urine Color Urine Appearance Urine pH (5.0-9.0) Ur Specific [place] (1.005-1.030) Urine Protein (NEGATIVE) mg/dL Urine Glucose (UA) (NEGATIVE) mg/dL Urine Ketones (NEGATIVE) mg/dL Urine Occult Blood (NEGATIVE) Urine Nitrite (NEGATIVE) Urine Bilirubin (NEGATIVE) Urine Urobilinogen (0.2-1.0) E.U./dL Ur Leukocyte Esterase (NEGATIVE) Urine RBC /HPF Urine WBC /HPF Ur Epithelial Cells /LPF Urine Bacteria (NONE TO FEW) /HPF Urine specimen set up for culture and sensitivity Meds: Medications Discontinued Medications Generic Name Dose Route Start Last Admin Trade Name Freq PRN Reason Stop Dose Admin Lactated Ringer's 1,000 mls @ 999 mls/hr 06/05/19 17:58 06/05/19 18:14 Ringers, Lactated IV 06/05/19 18:58 999 mls/hr .BOLUS ONE Administration Sodium Chloride 10 ml 06/05/19 17:53 06/05/19 18:14 Saline Flush FLUSH 10 ml ASDIRECTED PRN Administration Keep Vein Open - Radiology Interpretation Free Text/Narrative:: threat monitoring analyst shows normal sinus rhythm with heart rate in the 60s to 80s with no ectopy or arrhythmia. Departure - Departure Time of Disposition: 19:35 Disposition: Home, Self-Care 01 Condition: Good Clinical Impression: SAB (spontaneous ), Mixed anxiety depressive disorder Asthma Qualifiers: Asthma severity: mild Asthma persistence: intermittent Asthma complication type : uncomplicated Qualified Code(s): J45.20 - Mild intermittent asthma, uncomplicated - Discharge Information *PRESCRIPTION DRUG MONITORING PROGRAM REVIEWED*: Not Applicable *COPY OF PRESCRIPTION DRUG MONITORING REPORT IN PATIENT AC: Not Applicable Instructions: Miscarriage, [id number] Referrals: Jaimie Hdz PA-C [Primary Care Provider] - Forms: ED Department Discharge Additional Instructions: 1. Followup with your regular provider in 2 days as directed for reevaluation and recommended repeat CBC. Discuss pelvic ultrasound results as below at that time. Bring these discharge instructions with you to that visit. 2. Tylenol 650 mg by mouth every 4 hours and/or OTC ibuprofen 2-3 tabs by mouth every 6 hours with food as directed./needed. You may stagger these medications for 48-72 hours only, which essentially means that you are receiving a pain medication about every 2 hours. 3. Work excuse- See Form 4. Congratulations about stopping marijuana, alcohol, and tobacco use, however stop all energy drink use JUAN as discussed. 5. OB ultrasound in this facility tomorrow morning at 9:30 a.m. with preliminary verbal report to be obtained from me prior to leaving this facility. 6. Immediately after this visit verify that your cellular telephone's voicemail has been activated and is empty. Also verify that your home telephone 's answering machine is operating properly and has space to receive messages. Note that it is sometimes necessary for us to be able to contact you at a later date to discuss your medical care. 7. Please remember that we are ALWAYS here for you and want to answer any questions you may have. Feel free to call the hospital any time and we call you back JUAN. 8. Collect any vaginal tissue, if passed, and bring to this facility for further evaluation as discussed. - Problem List & Annotations (1) SAB (spontaneous ) SNOMED Code(s): 61468659 Code(s): O03.9 - COMPLETE OR UNSP SPONTANEOUS WITHOUT COMPLICATION Status: Acute Priority: High Onset Date: ~05/27/19 Annotation/Comment:: Note blighted ovum by OB ultrasound on 05/21/19 with misoprostal therapy by her OB initiated on 05/27 as above. Previous anemia has since resolved. Patient states that she may have some dysuria, however no evidence of current UTI with urine specimen set up for culture and sensitivity. Uncertain at this time whether her SAB is complete with OB ultrasound to be repeated in this facility tomorrow as per discharge instructions. Close follow-up by her regular provider , Jaimie Mays PA-C, at [facility] in [place], with further OB consultation depending on her clinical course and above OB ultrasound results. [place] work excuse was provided with this starting on 06/04 secondary to missed work yesterday. Note that IV lactated Ringer's bolus was initially ordered secondary to patient's clinical history, however IV did infiltrate with only small amounts of this infusion provided during this visit. IV was not restarted secondary to negative orthostatic blood pressures and improved symptoms during this evaluation. (2) Asthma SNOMED Code(s): 880768624 Code(s): J45.909 - UNSPECIFIED ASTHMA, UNCOMPLICATED Status: Chronic Priority: Medium Annotation/Comment:: No recent fever or bronchitic type symptoms. Patient was congratulated about her recent tobacco cessation. Qualifiers: Asthma severity: mild Asthma persistence: intermittent Asthma complication type: uncomplicated Qualified Code(s): J45.20 - Mild intermittent asthma, uncomplicated (3) Mixed anxiety depressive disorder SNOMED Code(s): 190877719 Code(s): F41.8 - OTHER SPECIFIED ANXIETY DISORDERS Status: Chronic Priority: High Annotation/Comment:: Stable by history. Continue to observe closely by her medical provider. - Problem List Review Problem List Initiated/Reviewed/Updated: Yes - My Orders Last 24 Hours: My Active Orders 06/05/19 17:53 Peripheral IV Care [RC] . DIRECTED CULTURE URINE [RM] Stat Obtain Past Medical Record [OM.PC] Urgent Peripheral IV Insertion Adult [OM.PC] Stat Resuscitation Status Stat 06/05/19 17:58 Cardiac Monitoring [RC] . DIRECTED - Assessment/Plan Last 24 Hours: My Active Orders 06/05/19 17:53 Peripheral IV Care [RC] . DIRECTED CULTURE URINE [RM] Stat Obtain Past Medical Record [OM.PC] Urgent Peripheral IV Insertion Adult [OM.PC] Stat Resuscitation Status Stat 06/05/19 17:58 Cardiac Monitoring [RC] . DIRECTED Assessment:: As above Plan: As above. Extensive precautions were given to the patient and her sister, who are in agreement with the treatment plan. See Patient Instructions for further treatment and plan.
[2019-06-05] MEDS ORDERED: Lactated Ringers 1,000 ML IV ONE (17:58)
[2019-06-05 18:40] LABS: CHLORIDE,CL 104 mmol/L (98-107); SODIUM,NA 142 mmol/L (136-145)
[2019-06-05 19:10] VITALS: BP 98/63; PULSE 69
== END 2019-06-05 19:35 | disposition home or self-care (01) ==
LOC: LL.ED 17:39
DX: O03.4 Incomplete spontaneous abortion without complication (principal); F41.9 Anxiety disorder, unspecified; J45.20 Mild intermittent asthma, uncomplicated; F17.210 Nicotine dependence, cigarettes, uncomplicated; Z79.899 Other long term (current) drug therapy
CPT/HCPCS: 36415; 80053; 81001; 82150; 83605; 83690; 83735; 84702; 85025; 85610; 85730; 87086; 99284; J7120

== ENCOUNTER 2019-09-06 11:19 | Emergency (ER) | payer BC ==
--- NOTE | 2019-09-06 11:26 | EDM.PDOC ---
ED HPI GENERAL MEDICAL PROBLEM - General Chief Complaint: ENT Problem Stated Complaint: infected tooth Time Seen by Provider: 09/06/19 11:22 Source of Information: Reports: Patient History Limitations: Reports: No Limitations - History of Present Illness INITIAL COMMENTS - FREE TEXT/NARRATIVE: Patient is a 24-year-old who is seen with chief complaint of left lower second and third molar second and fourth pain at this time patient states that she's had on and off pain for a while was supposed to see the dentist today was canceled because of the snow Onset: Gradual Duration: Day(s): Location: Reports: Face Quality: Reports: Ache Severity: Mild Improves with: Reports: None Worsens with: Reports: Other (Cold and hot) Treatments HEMP FIBER TAKER OFF: Reports: Acetaminophen, NSAIDS - Related Data Allergies Allergy/AdvReac Type Severity Reaction Status Date / Time No Known Allergies Allergy Verified 09/06/19 11:28 Home Meds: Home Meds Albuterol [Proair HFA] 2 puff INH ASDIRECTED PRN 07/15/17 [History] Ibuprofen 2 - 3 tab PO Q6HR PRN 06/05/19 [History] [id number]/Iron/FA/O3/Dha/Epa/Fish [ Multi-Dha Softgel] 1 cap PO DAILY 06/05 [History] Amoxicillin/Potassium Clav [Augmentin 875-125 Tablet] 1 each PO BID 10 Days #20 tablet 09/06/19 [Rx] Past Medical History HEENT History: Reports: Impaired Vision, Other (See Below). Denies: Allergic Rhinitis, Hard of Hearing, Retinal Detachment Other HEENT History: History of Multiple caries. Patient wears glasses. Cardiovascular History: Reports: None. Denies: Afib, Aneurysm, Arrhythmia, Blood Clots/VTE/DVT, Heart Murmur, High Cholesterol, Hypertension, Syncope Respiratory History: Reports: Asthma, Bronchitis, Recurrent. Denies: Intubation , Previous, PE, Pneumothorax, Sleep Apnea Genitourinary History: Reports: None. Denies: Acute Renal Failure, Chronic Renal Insuffiency, Renal Calculus, STD, Urinary Incontinence, UTI, Recurrent ANALYST GEOCHEMICAL PROSPECTING History: Reports: , Spontaneous , Other (See Below). Denies: Dysfunctional Uterine Bleeding, Endometriosis, Fibroids Other ANALYST GEOCHEMICAL PROSPECTING History: LMP certain on 03/04/19 with current blighted ovum diagnosed by OB ultrasound on 04/2519. SAB during first trimester not requiring procedure. Previous history of abnormal irregular periods but not currently. Musculoskeletal History: Reports: Fracture, Other (See Below). Denies: Arthritis, Osteoarthritis Other Musculoskeletal History: History of multiple injuries secondary to suicide attempt at age 14 as below including head concussion, multiple rib fracturesside unknown, right ankle fracture and 2 finger fractures of her right hand with no surgery required. Neurological History: Reports: Concussion, Head Trauma, Other (See Below). Denies: Headaches, Chronic, Neuropathy, Peripheral, Seizure Other Neuro History: Head concussion at age 14 as above/below Psychiatric History: Reports: Addiction, Anxiety, Depression, Psych Hospitalization(s), Suicide Attempt, Suicidal Ideation, Other (See Below) Other Psychiatric History: Anxiety depression disorder since age 14 with suicide attempt at that time with the patient jumping off a balcony with multiple injuries as above. She also has recurrent gesture reactions, including cutting her arms, etc. Note previous psychiatric hospitalization at age 14. Illicit drug, alcohol, tobacco use as below Hematologic History: Reports: None. Denies: Anemia, Blood Transfusion(s), Iron Deficiency Dermatologic History: Reports: None. Denies: Eczema, Psoriasis - Infectious Disease History Infectious Disease History: Reports: None. Denies: C-Difficile, Chicken Pox, Measles, Meningitis, Mononucleosis, MRSA, Mumps, Pertussis (Whooping Cough), Rheumatic Fever, RSV, Rubella, Scarlet Fever, Shingles, TB, VRE - Past Surgical History HEENT Surgical History: Reports: Oral Surgery, Other (See Below) Other HEENT Surgeries/Procedures: [place] teeth extraction 2 in December 2017 with multiple previous teeth extractions Respiratory Surgical History: Reports: None. Denies: Thoracentesis Musculoskeletal Surgical History: Reports: None - Past Imaging History Past Imaging History: Reports: Ultrasound (OB ultrasound on 05/21/19.) Social & Family History - Family History Family Medical History: Noncontributory - Caffeine Use Caffeine Use: Reports: Coffee (3 cups per day), Energy Drinks (1 per week). Denies: Soda, Tea - Living Situation & Occupation Living situation: Reports: Single, Alone (However current significant other relationship) Occupation: Employed ([employer]) ED ROS GENERAL - Review of Systems Review Of Systems: See Below Constitutional: Reports: No Symptoms HEENT: Reports: Dental Pain Respiratory: Reports: No Symptoms Cardiovascular: Reports: No Symptoms Endocrine: Reports: No Symptoms GI/Abdominal: Reports: No Symptoms : Reports: No Symptoms Musculoskeletal: Reports: No Symptoms Skin: Reports: No Symptoms Neurological: Reports: No Symptoms Psychiatric: Reports: No Symptoms Hematologic/Lymphatic: Reports: No Symptoms Immunologic: Reports: No Symptoms ED EXAM, GENERAL - Physical Exam Exam: See Below Exam Limited By: No Limitations General Appearance: Alert, WD/WN, No Apparent Distress Ears: Normal External Exam, Normal Canal, Hearing Grossly Normal, Normal TMs Ear Exam: Bilateral Ear: Auricle Normal, Canal Normal, TM normal Nose: Normal Inspection, Normal Mucosa, No Blood Throat/Mouth: Other (Right lower second and fourth molar pain) Head: Atraumatic, Normocephalic Neck: Normal Inspection, Supple, Non-Tender, Full Range of Motion Respiratory/Chest: No Respiratory Distress, Lungs Clear, Normal Breath Sounds, No Accessory Muscle Use, Chest Non-Tender Cardiovascular: Normal Peripheral Pulses, Regular Rate, Rhythm, No Edema, No Gallop, No JVD, No Murmur, No Rub GI/Abdominal: Normal Bowel Sounds, Soft, Non-Tender, No Organomegaly, No Distention, No Abnormal Bruit, No Mass Back Exam: Normal Inspection, Full Range of Motion, NT Extremities: Normal Inspection, Normal Range of Motion, Non-Tender, Normal Capillary Refill, No Pedal Edema Neurological: Alert, Oriented, CN II-XII Intact, Normal Cognition, Normal Gait, Normal Reflexes, No Motor/Sensory Deficits Psychiatric: Normal Affect, Normal Mood Skin Exam: Warm, Dry, Intact, Normal Color, No Rash Departure - Departure Time of Disposition: 11:27 Disposition: Home, Self-Care 01 Clinical Impression: Apical abscess - Discharge Information *PRESCRIPTION DRUG MONITORING PROGRAM REVIEWED*: No *COPY OF PRESCRIPTION DRUG MONITORING REPORT IN PATIENT AC: No Referrals: Jaimie Hdz PA-C [Primary Care Provider] - Care Plan Goals: She will be started on Augmentin 875 twice a day for 10 days
[2019-09-06 11:27] VITALS: BP 128/75; PULSE 74
== END 2019-09-06 11:50 | disposition home or self-care (01) ==
LOC: LL.ED 11:19
DX: K04.7 Periapical abscess without sinus (principal); J45.909 Unspecified asthma, uncomplicated; Z79.899 Other long term (current) drug therapy
CPT/HCPCS: 99282

== ENCOUNTER 2019-11-17 11:31 | Emergency (ER) | payer BC ==
[2019-11-17 11:42] VITALS: BP 112/62; PULSE 75
[2019-11-17 12:40] LABS: CHLORIDE,CL 101 mmol/L (98-107); SODIUM,NA 136 mmol/L (136-145)
--- NOTE | 2019-11-17 12:53 | EDM.PDOC ---
ED HPI GENERAL MEDICAL PROBLEM - General Chief Complaint: NURSING FACULTY Problem Stated Complaint: abdominal cramping Time Seen by Provider: 11/17/19 11:46 Source of Information: Reports: Patient History Limitations: Reports: No Limitations - History of Present Illness INITIAL COMMENTS - FREE TEXT/NARRATIVE: Patient had brief sharp right sided lower abdominal discomfort earlier this morning. Is approx 6 weeks with LMP 10/01/19 Has US study scheduled on Nov 26. Currently pain-free. No bloody vaginal discharge but had some greenish/yellow discharge earlier today. Denies fevers/chills. Has mild intermittent nausea which is attributed to morning sickness. No other acute changes reported. Had STD checking just prior to and was negative for all. Single sexual partner/monogamous relationship. Recent URI. Has bronchitis/using inhaler. Did have round of antibiotics. - Related Data Allergies Allergy/AdvReac Type Severity Reaction Status Date / Time No Known Allergies Allergy Verified 11/17/19 11:36 Home Meds: Home Meds Qcu154/Iron/FA/O3/Dha/Epa/Fish [ Multi-Dha Softgel] 1 cap PO DAILY 06/05 [History] Past Medical History HEENT History: Reports: Impaired Vision, Other (See Below) Other HEENT History: History of Multiple caries. Patient wears glasses. Cardiovascular History: Reports: None Respiratory History: Reports: Asthma, Bronchitis, Recurrent Genitourinary History: Reports: None NURSING FACULTY History: Reports: , Spontaneous , Other (See Below) Other NURSING FACULTY History: LMP certain on 03/04/19 with current blighted ovum diagnosed by OB ultrasound on 04/2519. SAB during first trimester not requiring procedure. Previous history of abnormal irregular periods but not currently. Musculoskeletal History: Reports: Fracture, Other (See Below) Other Musculoskeletal History: History of multiple injuries secondary to suicide attempt at age 14 as below including head concussion, multiple rib fracturesside unknown, right ankle fracture and 2 finger fractures of her right hand with no surgery required. 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 She also has recurrent gesture reactions, including cutting her arms, etc. Note previous psychiatric hospitalization at age 14. Illicit drug, alcohol, tobacco use as below Hematologic History: Reports: None Dermatologic History: Reports: None - Infectious Disease History Infectious Disease History: Reports: Influenza - Past Surgical History Head Surgeries/Procedures: Reports: None HEENT Surgical History: Reports: Oral Surgery, Other (See Below) Other HEENT Surgeries/Procedures: [place] teeth extraction 2 in December 2017 with multiple previous teeth extractions Respiratory Surgical History: Reports: None Musculoskeletal Surgical History: Reports: None - Past Imaging History Past Imaging History: Reports: Ultrasound (OB ultrasound on 05/21/19.) Social & Family History - Family History Family Medical History: Noncontributory - Tobacco Use Tobacco Use Within Last Twelve Months: No - Caffeine Use Caffeine Use: Reports: Coffee, Energy Drinks Caffeine Use Comment: 2 per day - Living Situation & Occupation Living situation: Reports: Single, Alone (However current significant other relationship) Occupation: Employed ([employer]) ED ROS GENERAL - Review of Systems Review Of Systems: Comprehensive ROS is negative, except as noted in HPI. GI/Abdominal: Reports: Abdominal Pain, Nausea. Denies: Constipation, Diarrhea, Distension, Melena, Vomiting : Denies: Flank Pain, Frequency, Hematuria, Pain, Urgency ED EXAM, GENERAL - Physical Exam Exam: See Below Exam Limited By: No Limitations General Appearance: Alert, WD/WN, No Apparent Distress Eye Exam: Bilateral Eye: EOMI, PERRL Nose: No: Nasal Deformity, Nasal Swelling, Nasal Drainage Throat/Mouth: Normal Lips (lip piercing lower lip), Normal Voice, No Airway Compromise Head: Atraumatic, Normocephalic Neck: Supple, Non-Tender Respiratory/Chest: No Respiratory Distress, No Accessory Muscle Use, Chest Non- Tender, Wheezing (mild/scattered) Cardiovascular: Regular Rate, Rhythm, No Murmur GI/Abdominal: Normal Bowel Sounds, Soft, Non-Tender, No Distention (Female) Exam: Deferred Rectal (Female) Exam: Deferred Back Exam: Normal Inspection Extremities: Normal Range of Motion, Normal Capillary Refill Neurological: Alert, Oriented, Normal Cognition, Normal Gait Psychiatric: Normal Affect, Normal Mood Skin Exam: Warm, Dry, Intact, Normal Color Course - Vital Signs Last Recorded V/S: Last Vital Signs Temp 37.0 C 11/17/19 11:36 Pulse 75 11/17/19 11:36 Resp 18 11/17/19 11:36 BP 112/62 11/17/19 11:36 Pulse Ox 100 11/17/19 11:36 - Orders/Labs/Meds Labs: Laboratory Tests 11/17/19 11/17/19 11/17/19 Range/Units 11:54 12:00 12:00 WBC 6.7 (4.0-10.2) K/uL RBC 4.75 (3.77-5.09) M/uL Hgb 13.8 (11.7-15.5) g/dL Hct 40.6 (34.0-46.0) % MCV 85.5 (84.0-98.0) fL MCH 29.1 (28.2-33.3) pg MCHC 34.0 (31.7-36.0) g/dL RDW 12.0 (11.2-14.1) % Plt Count 155 (150-350) K/uL Neut % (Auto) 64.0 (45.0-80.0) % Lymph % (Auto) 26.3 (10.0-50.0) % [place] % (Auto) 7.6 (2.0-14.0) % Eos % (Auto) 1.8 (0.0-5.0) % Baso % (Auto) 0.3 (0.0-2.0) % Neut # (Auto) 4.32 (1.40-7.00) K/uL Lymph # (Auto) 1.77 (0.50-3.50) K/uL [place] # (Auto) 0.51 (0.00-1.00) K/uL Eos # (Auto) 0.12 (0.00-0.50) K/uL Baso # (Auto) 0.02 (0.00-0.20) K/uL Sodium 136 (136-145) mmol/L Potassium 4.0 (3.5-5.1) mmol/L Chloride 101 (98-107) mmol/L Carbon Dioxide 25.5 (21.0-32.0) mmol/L BUN 9 (7-18) mg/dL Creatinine 0.62 (0.51-1.17) mg/dL Est Cr Clr Drug Dosing 124.23 mL/min Estimated GFR (MDRD) > 60 mL/min Glucose 98 (74-106) mg/dL Calcium 8.8 (8.5-10.1) mg/dL Total Bilirubin 0.2 (0.2-1.0) mg/dL AST 29 (15-37) U/L ALT 30 (12-78) U/L Alkaline Phosphatase 49 (46-116) IU/L Total Protein 7.4 (6.4-8.2) g/dL Albumin 3.6 (3.4-5.0) g/dL HCG, Quant 36273 mIU/mL Specimen Type Urinblad Urine Color Yellow Urine Appearance Clear Urine pH 7.0 (5.0-9.0) Ur Specific [place] 1.020 (1.005-1.030) Urine Protein Negative (NEGATIVE) mg/dL Urine Glucose (UA) Negative (NEGATIVE) mg/dL Urine Ketones Trace H (NEGATIVE) mg/dL Urine Occult Blood Negative (NEGATIVE) Urine Nitrite Negative (NEGATIVE) Urine Bilirubin Negative (NEGATIVE) Urine Urobilinogen 0.2 (0.2-1.0) E.U./dL Ur Leukocyte Esterase Negative (NEGATIVE) Urine RBC 0-5 /HPF Urine WBC 0-5 /HPF Ur Epithelial Cells Few /LPF Urine Bacteria Few (NONE TO FEW) /HPF - Re-Assessments/Exams Free Text/Narrative Re-Assessment/Exam: CBC/Chem/UA unremarkable. Quant HCG 22462 which is appropriate level for 6 weeks. Wet prep vaginal sample unremarkable. Given that patient is pain-free right now, and has no bloody discharge, no further workup indicated at this time. Mostly likely etiology is ovarian cyst pain vs uterine discomfort from changes. Precautions reviewed at length with patient however. If she is to have return of pain that is more intense/prolonged/accompanied by vaginal bleeding then she will need immediate re-evaluation and US to confirm IUP. She does have US scheduled for next week. Patient is agreeable with plan. Departure - Departure Time of Disposition: 12:51 Disposition: Home, Self-Care 01 Condition: Good Clinical Impression: First trimester - Discharge Information *PRESCRIPTION DRUG MONITORING PROGRAM REVIEWED*: Not Applicable *COPY OF PRESCRIPTION DRUG MONITORING REPORT IN PATIENT AC: Not Applicable Instructions: Warning Signs During Referrals: Jaimie Hdz PA-C [Primary Care Provider] - Forms: ED Department Discharge Additional Instructions: Watch for changes. Know that it is normal to have intermittent discomfort in area of growing uterus. However if you notice increasingly sharp pain/vaginal bleeding get rechecked. You will need to have an US study if this happens to make certain that you have a normal appearing . If you continue to do well and have no significant problems then it is ok to wait until your US appointment next week. Call if you have further questions/concerns. Sepsis Event Note - Evaluation Sepsis Screening Result: No Definite Risk - Focused Exam Vital Signs: Vital Signs Temp Pulse Resp BP Pulse Ox 11/17/19 11:36 37.0 C 75 18 112/62 100 Date Exam was Performed: 11/17/19 Time Exam was Performed: 12:54
== END 2019-11-17 13:00 | disposition home or self-care (01) ==
LOC: LL.ED 11:31
DX: O99.89 Other specified diseases and conditions complicating pregnancy, childbirth and the puerperium (principal); R10.31 Right lower quadrant pain; R11.0 Nausea; Z3A.01 Less than 8 weeks gestation of pregnancy
CPT/HCPCS: 36415; 80053; 81001; 84702; 85025; 87210; 99284

== ENCOUNTER 2019-12-16 11:20 | Emergency (ER) | payer BC ==
[2019-12-16 11:45] VITALS: BP 98/59; PULSE 75
[2019-12-16 12:21] LABS: CHLORIDE,CL 105 mmol/L (98-107); SODIUM,NA 141 mmol/L (136-145)
--- NOTE | 2019-12-16 13:17 | EDM.PDOC ---
ED HPI GENERAL MEDICAL PROBLEM - General Chief Complaint: MOTORCYCLE SALES ASSOCIATE Problem Stated Complaint: abdominal pain,cramping Time Seen by Provider: 12/16/19 11:35 Source of Information: Reports: Patient History Limitations: Reports: No Limitations - History of Present Illness INITIAL COMMENTS - FREE TEXT/NARRATIVE: Patient comes to ER with complaint of episode bright red vaginal bleeding that happened just prior to presenting to ER. Is around 11 weeks . . Some lower abdominal cramping 3/10 Has some frequency urinating but no burning/UTI symptoms. Denies HEENT/Resp/CV changes. Denies GI changes/nausea/emesis/loose stools/constipation. No fevers/chills No injuries. No other changes reported. Had US study Nov 26 that confirmed IUP. - Related Data Allergies Allergy/AdvReac Type Severity Reaction Status Date / Time No Known Allergies Allergy Verified 12/16/19 11:35 Home Meds: Home Meds Lsq404/Iron/FA/O3/Dha/Epa/Fish [ Multi-Dha Softgel] 1 cap PO DAILY 06/05 [History] Past Medical History HEENT History: Reports: Impaired Vision, Other (See Below) Other HEENT History: History of Multiple caries. Patient wears glasses. 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 SAB during first trimester not requiring procedure. Previous history of abnormal irregular periods but not currently. Musculoskeletal History: Reports: Fracture, Other (See Below) Other Musculoskeletal History: History of multiple injuries secondary to suicide attempt at age 14 as below including head concussion, multiple rib fracturesside unknown, right ankle fracture and 2 finger fractures of her right hand with no surgery required. 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 She also has recurrent gesture reactions, including cutting her arms, etc. Note previous psychiatric hospitalization at age 14. Illicit drug, alcohol, tobacco use as below Hematologic History: Reports: None Dermatologic History: Reports: None - Infectious Disease History Infectious Disease History: Reports: Influenza - Past Surgical History Head Surgeries/Procedures: Reports: None HEENT Surgical History: Reports: Oral Surgery, Other (See Below) Other HEENT Surgeries/Procedures: [place] teeth extraction 2 in December 2017 with multiple previous teeth extractions Respiratory Surgical History: Reports: None Musculoskeletal Surgical History: Reports: None - Past Imaging History Past Imaging History: Reports: Ultrasound (OB ultrasound on 05/21/19.) Social & Family History - Family History Family Medical History: Noncontributory - Tobacco Use Smoking Status *Q: Former Smoker Years of Tobacco use: 13 Used Tobacco, but Quit: Yes Month/Year Tobacco Last Used: 09/2019 Second Hand Smoke Exposure: No - Caffeine Use Caffeine Use: Reports: Coffee Caffeine Use Comment: 2 per day - Recreational Drug Use Recreational Drug Use: No - Living Situation & Occupation Living situation: Reports: Single, Alone (However current significant other relationship) Occupation: Employed ([id number]) ED ROS GENERAL - Review of Systems Review Of Systems: Comprehensive ROS is negative, except as noted in HPI. ED EXAM, GENERAL - Physical Exam Exam: See Below Exam Limited By: No Limitations General Appearance: Alert, WD/WN, No Apparent Distress Eye Exam: Bilateral Eye: EOMI, PERRL Nose: No: Nasal Deformity, Nasal Swelling, Nasal Drainage Throat/Mouth: Normal Lips, Normal Voice, No Airway Compromise Head: Atraumatic, Normocephalic Neck: Supple Respiratory/Chest: No Respiratory Distress, Lungs Clear, Normal Breath Sounds, No Accessory Muscle Use Cardiovascular: Regular Rate, Rhythm, No Edema, No Murmur GI/Abdominal: Normal Bowel Sounds, Soft, Non-Tender, No Distention (Female) Exam: Deferred Rectal (Female) Exam: Deferred Back Exam: Normal Inspection Extremities: Normal Inspection, Normal Capillary Refill Neurological: Alert, Oriented, Normal Cognition, Normal Gait Psychiatric: Normal Affect, Normal Mood Skin Exam: Warm, Dry, Intact, Normal Color Course - Vital Signs Last Recorded V/S: Last Vital Signs Temp 37.0 C 12/16/19 11:30 Pulse 75 12/16/19 11:44 Resp 20 12/16/19 11:44 BP 98/59 L 12/16/19 11:44 Pulse Ox 100 12/16/19 11:44 - Orders/Labs/Meds Orders: Active Orders 24 hr Category Date Time Status OB 1st Tri Sgl 1st Gest [US] Stat Exams 12/16/19 11:22 Taken Labs: Laboratory Tests 12/16/19 12/16/19 12/16/19 Range/Units 11:40 11:40 12:10 WBC 7.9 (4.0-10.2) K/uL RBC 4.18 (3.77-5.09) M/uL Hgb 12.3 D (11.7-15.5) g/dL Hct 35.3 (34.0-46.0) % MCV 84.4 (84.0-98.0) fL MCH 29.4 (28.2-33.3) pg MCHC 34.8 (31.7-36.0) g/dL RDW 12.7 (11.2-14.1) % Plt Count 194 (150-350) K/uL Neut % (Auto) 61.0 (45.0-80.0) % Lymph % (Auto) 27.2 (10.0-50.0) % [place] % (Auto) 8.1 (2.0-14.0) % Eos % (Auto) 3.4 (0.0-5.0) % Baso % (Auto) 0.3 (0.0-2.0) % Neut # (Auto) 4.81 (1.40-7.00) K/uL Lymph # (Auto) 2.14 (0.50-3.50) K/uL [place] # (Auto) 0.64 (0.00-1.00) K/uL Eos # (Auto) 0.27 (0.00-0.50) K/uL Baso # (Auto) 0.02 (0.00-0.20) K/uL Sodium 141 (136-145) mmol/L Potassium 3.5 (3.5-5.1) mmol/L Chloride 105 (98-107) mmol/L Carbon Dioxide 22.5 (21.0-32.0) mmol/L BUN 11 (7-18) mg/dL Creatinine 0.50 L (0.51-1.17) mg/dL Est Cr Clr Drug Dosing 156.12 mL/min Estimated GFR (MDRD) > 60 mL/min Glucose 86 (74-106) mg/dL Calcium 9.1 (8.5-10.1) mg/dL HCG, Quant 348397 mIU/mL Specimen Type Urinvoid Urine Color Yellow Urine Appearance Clear Urine pH 7.5 (5.0-9.0) Ur Specific [place] 1.015 (1.005-1.030) Urine Protein Negative (NEGATIVE) mg/dL Urine Glucose (UA) Negative (NEGATIVE) mg/dL Urine Ketones Negative (NEGATIVE) mg/dL Urine Occult Blood Negative (NEGATIVE) Urine Nitrite Negative (NEGATIVE) Urine Bilirubin Negative (NEGATIVE) Urine Urobilinogen 0.2 (0.2-1.0) E.U./dL Ur Leukocyte Esterase Negative (NEGATIVE) Urine RBC Not seen /HPF Urine WBC Not seen /HPF Ur Epithelial Cells Rare /LPF Urine Bacteria Not seen (NONE TO FEW) /HPF - Re-Assessments/Exams Free Text/Narrative Re-Assessment/Exam: Quant HCG/CBC/BMP requested. UA did not show UTI. US ordered to confirm fetus viable. IUP noted. Heart rate 160. Noted to have small subchorionic hemorrhage per Radiologist, plus right sided cyst. Call placed to lead application architect OBG[facility] at [place], Dr. Krishnamurthy. Patient discussed. Her recommendation was to have patient go on pelvic rest for now and follow up with her provider who is caring for her later this week. No additional intervention indicated at this time. This was relayed to the patient. She was taking off duty for tonight at [facility]. She is to follow up otherwise as needed. Departure - Departure Time of Disposition: 13:14 Disposition: Home, Self-Care 01 Condition: Good Clinical Impression: First trimester bleeding - Discharge Information *PRESCRIPTION DRUG MONITORING PROGRAM REVIEWED*: Not Applicable *COPY OF PRESCRIPTION DRUG MONITORING REPORT IN PATIENT AC: Not Applicable Instructions: Vaginal Bleeding During , First Trimester, [id number] Referrals: Jaimie Hdz PA-C [Primary Care Provider] - Forms: ED Department Discharge Additional Instructions: Pelvic rest (take it easy, avoid heavy lifting, no sex) Make appointment to follow up with your primary provider who is taking care of your for follow up . Observe for changes. Follow up otherwise as needed. Sepsis Event Note - Evaluation Sepsis Screening Result: No Definite Risk - Focused Exam Vital Signs: Vital Signs Temp Pulse Resp BP Pulse Ox 12/16/19 11:44 75 20 98/59 L 100 12/16/19 11:30 37.0 C 79 18 117/59 L 100 Date Exam was Performed: 12/16/19 Time Exam was Performed: 14:36 - My Orders Last 24 Hours: My Active Orders 12/16/19 11:22 OB 1st Tri Sgl 1st Gest [US] Stat - Assessment/Plan Last 24 Hours: My Active Orders 12/16/19 11:22 OB 1st Tri Sgl 1st Gest [US] Stat
== END 2019-12-16 13:40 | disposition home or self-care (01) ==
LOC: LL.ED 11:20
DX: O20.9 Hemorrhage in early pregnancy, unspecified (principal); Z87.891 Personal history of nicotine dependence; Z3A.11 11 weeks gestation of pregnancy
CPT/HCPCS: 36415; 76801; 80048; 81001; 84702; 85025; 99284-25

== ENCOUNTER 2022-07-27 16:46 | Emergency (ER) | payer BC ==
[2022-07-27 16:51] VITALS: BP 129/83; PULSE 102
[2022-07-27 17:45] LABS: CORONAVIRUS COVID-19 NAA NEGATIVE (NEGATIVE); RESPIRATORY SYNCYTIAL VIR NAA NEGATIVE (NEGATIVE)
[2022-07-27] MEDS ORDERED: Albuterol/Ipratropium 3.0-0.5 MG/3 ML Neb Soln NEB ONE (17:48)
[2022-07-27 18:22] LABS: ANION GAP 9.5 meq/L (7-15); CHLORIDE,CL 105 mmol/L (98-107); ESTIMATED GFR 112 mL/min (>=60); SODIUM,NA 139 mmol/L (136-145)
[2022-07-27] MEDS ORDERED: Acetaminophen 500 MG Tab PO ONE (19:27)
== END 2022-07-27 19:10 | disposition home or self-care (01) ==
LOC: LL.ED 16:46
DX: J18.9 Pneumonia, unspecified organism (principal); Z79.899 Other long term (current) drug therapy; Z20.822 Contact with and (suspected) exposure to COVID-19
CPT/HCPCS: 0241U; 36415; 71046; 80053; 85025; 86140; 99285; J7620-GY

== ENCOUNTER 2023-10-23 23:43 | Emergency (ER) | payer SELFPAY ==
[2023-10-23 23:45] VITALS: BP 136/81; PULSE 98
[2023-10-23] MEDS ORDERED: Sodium Chloride 0.9% 1,000 ML IV ONE (23:52)
[2023-10-23] MEDS ORDERED: Ondansetron 4 MG/2 ML SDV IVPUSH ONE (23:53)
[2023-10-24 00:13] LABS: BASOPHILS ABSOLUTE AUTO 0.01 K/uL (0.00-0.20); BASOPHILS PERCENT AUTO 0.2 % (0.0-2.0); EOSINOPHILS ABSOLUTE AUTO 0.31 K/uL (0.00-0.50); EOSINOPHILS PERCENT AUTO 5.3 % (0.0-5.0); HEMATOCRIT 43.2 % (34.0-46.0); HEMOGLOBIN 14.7 g/dL (11.7-15.5); LYMPHOCYTES ABSOLUTE AUTO 0.81 K/uL (0.50-3.50); LYMPHOCYTES PERCENT AUTO 13.8 % (10.0-50.0); MEAN CORPUSCULAR HEMOGLOBIN 29.6 pg (28.2-33.3); MEAN CORPUSCULAR VOLUME 86.9 fL (84.0-98.0); MONOCYTES ABSOLUTE AUTO 0.36 K/uL (0.00-1.00); MONOCYTES PERCENT AUTO 6.1 % (2.0-14.0); NEUTROPHILS PERCENT AUTO 74.6 % (45.0-80.0); PLATELET COUNT,PLT 182 K/uL (150-350); RED BLOOD CELL COUNT 4.97 M/uL (3.77-5.09); RED CELL DISTRIBUTION WIDTH 12.4 % (11.2-14.1); WHITE BLOOD CELL COUNT,WBC 5.9 K/uL (4.0-10.2)
[2023-10-24 00:24] LABS: APPEARANCE,URINE SLIGHTLY CLOUDY; BILIRUBIN,URINE NEGATIVE (NEGATIVE); COLOR,URINE YELLOW; GLUCOSE,URINE NEGATIVE (NEGATIVE); KETONES,URINE NEGATIVE (NEGATIVE); LEUKOCYTE ESTERASE,URINE NEGATIVE (NEGATIVE); NITRITE,URINE NEGATIVE (NEGATIVE); OCCULT BLOOD,URINE TRACE-INTACT (NEGATIVE); PH,URINE 7.5 (5.0-9.0); PROTEIN,URINE NEGATIVE (NEGATIVE); UROBILINOGEN,URINE 0.2 E.U./dL (0.2-1.0)
[2023-10-24 00:31] LABS: ALANINE AMINOTRANSFERASE,ALT 25 U/L (12-78); ALKALINE PHOSPHATASE 67 IU/L (46-116); AMYLASE 51 U/L (25-115); ASPARTATE AMNIOTRANSFERASE,AST 22 U/L (15-37); BILIRUBIN TOTAL 0.5 mg/dL (0.2-1.0); BLOOD UREA NITROGEN,BUN 7 mg/dL (7-18); CALCIUM 9.2 mg/dL (8.5-10.1); CHLORIDE,CL 102 mmol/L (98-107); CREATININE 0.66 mg/dL (0.51-1.17); GLUCOSE RANDOM 78 mg/dL (70-99); LIPASE 29 U/L (16-77); POTASSIUM,K 3.9 mmol/L (3.5-5.1); PROTEIN TOTAL,TP 7.4 g/dL (6.4-8.2); SODIUM,NA 141 mmol/L (136-145)
[2023-10-24 00:31] LABS: BACTERIA,URINE RARE /HPF (NONE TO FEW); EPITHELIAL CELLS,URINE RARE /LPF; RBC,URINE 0-5 /HPF; WBC,URINE 0-5 /HPF
[2023-10-24 00:32] LABS: ESTIMATED GFR 122 mL/min (>=60)
[2023-10-24] MEDS ORDERED: Ondansetron 4 MG/2 ML SDV IVPUSH ONE (00:58)
[2023-10-24] MEDS: Sodium Chloride 0.9% 10 ML Syringe FLUSH PRN ×2 (01:01→01:11)
[2023-10-24] MEDS ORDERED: Ketorolac 15 MG/ML SDV IVPUSH ONE (01:05)
[2023-10-24] MEDS ORDERED: Take Home: Ondansetron 4 MG Tab.DIS, 5 Tab Pack PO ONE (01:40)
== END 2023-10-24 01:45 | disposition home or self-care (01) ==
LOC: LL.ED 23:43
DX: K52.9 Noninfective gastroenteritis and colitis, unspecified (principal)
CPT/HCPCS: 36415; 74019; 80053; 81001; 82150; 83605; 83690; 84703; 85025; 96361; 96374; 96375; 99283; 99284-25; J1885; J2405; J3490; J7030; Q0162

== ENCOUNTER 2023-12-06 21:52 | Emergency (ER) | payer SELFPAY ==
[2023-12-06] MEDS ORDERED: Tetracaine HCl/PF 0.5% 4 ML Bottle EYELF ONE (21:53)
[2023-12-06] MEDS ORDERED: Erythromycin Base 0.5% Ophth Oint 3.5 GM Tube EYEBOTH ONE (22:50)
[2023-12-06] MEDS ORDERED: traMADol 50 MG Tab PO ONE (22:52)
[2023-12-06 23:37] VITALS: BP 117/72; PULSE 89
== END 2023-12-06 23:05 | disposition home or self-care (01) ==
LOC: LL.ED 21:52
DX: S05.92XA Unspecified injury of left eye and orbit, initial encounter (principal); J45.909 Unspecified asthma, uncomplicated; Z79.899 Other long term (current) drug therapy; W00.0XXA Fall on same level due to ice and snow, initial encounter
CPT/HCPCS: 99283; A9270-GY; J3490

== ENCOUNTER 2024-03-21 00:36 | Emergency (ER) | payer SELFPAY ==
[2024-03-21 00:46] VITALS: BP 116/79; PULSE 85
== END 2024-03-21 01:00 | disposition home or self-care (01) ==
LOC: LL.ED 00:36
DX: J02.8 Acute pharyngitis due to other specified organisms (principal)
CPT/HCPCS: 99283

== ENCOUNTER 2025-02-04 03:32 | Emergency (ER) | payer BC ==
[2025-02-04 04:08] VITALS: BP 129/76; PULSE 78
[2025-02-04 04:23] LABS: APPEARANCE,URINE CLEAR; BILIRUBIN,URINE NEGATIVE (NEGATIVE); COLOR,URINE YELLOW; GLUCOSE,URINE NEGATIVE (NEGATIVE); KETONES,URINE NEGATIVE (NEGATIVE); LEUKOCYTE ESTERASE,URINE NEGATIVE (NEGATIVE); NITRITE,URINE NEGATIVE (NEGATIVE); OCCULT BLOOD,URINE NEGATIVE (NEGATIVE); PROTEIN,URINE NEGATIVE (NEGATIVE); UROBILINOGEN,URINE 0.2 E.U./dL (0.2-1.0)
[2025-02-04 04:28] LABS: BASOPHILS ABSOLUTE AUTO 0.04 K/uL (0.00-0.20); BASOPHILS PERCENT AUTO 0.7 % (0.0-2.0); EOSINOPHILS ABSOLUTE AUTO 0.18 K/uL (0.00-0.50); EOSINOPHILS PERCENT AUTO 3.2 % (0.0-5.0); HEMATOCRIT 43.2 % (34.0-46.0); HEMOGLOBIN 15.3 g/dL (11.7-15.5); IMMATURE GRAN ABSOLUTE AUTO 0.03 10^3/uL (0.00-0.04); IMMATURE GRAN PERCENT AUTO 0.5 % (0.0-0.4); LYMPHOCYTES ABSOLUTE AUTO 1.39 K/uL (0.50-3.50); LYMPHOCYTES PERCENT AUTO 25.1 % (10.0-50.0); MEAN CORPUSCULAR HEMOGLOBIN 29.9 pg (28.2-33.3); MEAN CORPUSCULAR HGB CONC 35.4 g/dL (31.7-36.0); MEAN CORPUSCULAR VOLUME 84.5 fL (84.0-98.0); MONOCYTES ABSOLUTE AUTO 0.34 K/uL (0.00-1.00); MONOCYTES PERCENT AUTO 6.1 % (2.0-14.0); NEUTROPHILS ABSOLUTE AUTO 3.56 K/uL (1.40-7.00); NEUTROPHILS PERCENT AUTO 64.4 % (45.0-80.0); PLATELET COUNT,PLT 170 K/uL (150-350); RED BLOOD CELL COUNT 5.11 M/uL (3.77-5.09); RED CELL DISTRIBUTION WIDTH 11.6 % (11.2-14.1); WHITE BLOOD CELL COUNT,WBC 5.5 K/uL (4.0-10.2)
[2025-02-04 04:34] LABS: ALANINE AMINOTRANSFERASE,ALT 11 U/L (12-78); ALBUMIN 4.3 g/dL (3.4-5.0); ALKALINE PHOSPHATASE 57 IU/L (46-116); ASPARTATE AMNIOTRANSFERASE,AST 12 U/L (15-37); BILIRUBIN TOTAL 0.4 mg/dL (0.2-1.0); BLOOD UREA NITROGEN,BUN 15 mg/dL (7-18); CALCIUM 9.2 mg/dL (8.5-10.1); CHLORIDE,CL 103 mmol/L (98-107); ESTIMATED GFR 102 mL/min (>=60); GLUCOSE RANDOM 97 mg/dL (70-99); MAGNESIUM 1.9 mg/dL (1.8-2.4); PROTEIN TOTAL,TP 7.5 g/dL (6.4-8.2); SODIUM,NA 138 mmol/L (136-145)
[2025-02-04] MEDS: Acetaminophen 500 MG Tab PO ONE (04:39)
[2025-02-04] MEDS: Ketorolac 30 MG/ML SDV IM ONE (04:39)
[2025-02-04 07:50] LABS: AMPHETAMINES SCREEN, URINE POSITIVE (NEGATIVE); BARBITURATE SCREEN,URINE NEGATIVE (NEGATIVE); BENZODIAZEPINES SCREEN,URINE NEGATIVE (NEGATIVE); COCAINE METABOLITES,URINE NEGATIVE (NEGATIVE); EDDP,URINE SCREEN NEGATIVE (NEGATIVE); METHAMPHETAMINES SCREEN, URINE NEGATIVE (NEGATIVE); TCA SCREEN,URINE NEGATIVE (NEGATIVE); THC SCREEN,URINE 50 NG/ML NEGATIVE (NEGATIVE)
[2025-02-04 08:15] LABS: BUPRENORPHINE SCREEN,URINE NEGATIVE (NEGATIVE); OXYCODONE SCREEN,URINE NEGATIVE (NEGATIVE)
== END 2025-02-04 05:00 | disposition home or self-care (01) ==
LOC: LL.ED 03:32
DX: R56.9 Unspecified convulsions (principal); Z79.899 Other long term (current) drug therapy
CPT/HCPCS: 36415; 80053; 80305-QW; 81003; 83735; 84703; 85025; 96372; 99284; A9270-GY; J1885

== ENCOUNTER 2025-05-31 16:39 | Emergency (ER) | payer BC ==
[2025-05-31 17:08] LABS: BASOPHILS ABSOLUTE AUTO 0.02 K/uL (0.00-0.20); BASOPHILS PERCENT AUTO 0.2 % (0.0-2.0); EOSINOPHILS ABSOLUTE AUTO 0.42 K/uL (0.00-0.50); EOSINOPHILS PERCENT AUTO 3.7 % (0.0-5.0); IMMATURE GRAN ABSOLUTE AUTO 0.02 10^3/uL (0.00-0.04); IMMATURE GRAN PERCENT AUTO 0.2 % (0.0-0.4); LYMPHOCYTES ABSOLUTE AUTO 0.99 K/uL (0.50-3.50); LYMPHOCYTES PERCENT AUTO 8.6 % (10.0-50.0); MONOCYTES ABSOLUTE AUTO 0.82 K/uL (0.00-1.00); MONOCYTES PERCENT AUTO 7.2 % (2.0-14.0); NEUTROPHILS ABSOLUTE AUTO 9.19 K/uL (1.40-7.00); NEUTROPHILS PERCENT AUTO 80.1 % (45.0-80.0); PLATELET COUNT,PLT 186 K/uL (150-350); RED BLOOD CELL COUNT 5.01 M/uL (3.77-5.09); RED CELL DISTRIBUTION WIDTH 11.6 % (11.2-14.1); WHITE BLOOD CELL COUNT,WBC 11.5 K/uL (4.0-10.2)
[2025-05-31 17:27] LABS: ALANINE AMINOTRANSFERASE,ALT 15 U/L (12-78); ASPARTATE AMNIOTRANSFERASE,AST 17 U/L (15-37); BILIRUBIN TOTAL 0.2 mg/dL (0.2-1.0); BLOOD UREA NITROGEN,BUN 8 mg/dL (7-18); CARBON DIOXIDE,CO2 23.4 mmol/L (21.0-32.0); CHLORIDE,CL 108 mmol/L (98-107); CREATININE 0.66 mg/dL (0.51-1.17); GLUCOSE RANDOM 97 mg/dL (70-99); POTASSIUM,K 4.3 mmol/L (3.5-5.1); PROTEIN TOTAL,TP 6.4 g/dL (6.4-8.2); SODIUM,NA 139 mmol/L (136-145)
[2025-05-31 17:31] LABS: ESTIMATED GFR 121 mL/min (>=60)
[2025-05-31] MEDS: Loperamide 2 MG Tab PO ONE (18:21)
[2025-05-31] MEDS: Sodium Chloride 0.9% 10 ML Syringe FLUSH PRN (18:22)
[2025-05-31] MEDS: Ketorolac 15 MG/ML SDV IVPUSH ONE (18:23)
[2025-05-31] MEDS: Take Home: Ondansetron 4 MG Tab.DIS, 5 Tab Pack PO ONE (19:04)
[2025-05-31 19:16] VITALS: BP 96/50; PULSE 73
== END 2025-05-31 19:07 | disposition home or self-care (01) ==
LOC: LL.ED 16:39
DX: R11.2 Nausea with vomiting, unspecified (principal); R19.7 Diarrhea, unspecified; R55 Syncope and collapse; F17.210 Nicotine dependence, cigarettes, uncomplicated; Z79.899 Other long term (current) drug therapy; Z88.8 Allergy status to other drugs, medicaments and biological substances
CPT/HCPCS: 36415; 74019; 80053; 81025; 83605; 83690; 85025; 96361; 96374; 96375; 99284-25; A9270-GY; J1885; J2470; J7030; Q0162